=== PATIENT | female | born 1950 | race American Indian/Alaskan Native ===

== ENCOUNTER 2017-03-08 11:16 | Day surgery (SDC) | payer MEDICARE ==
[~2017-03-08 11:16] MED LIST: ANCEF/STERILE WATER 2 GM/20 ML 2 GM/20 ML SYRINGE IV NR; NACL 0.9% 1000 ML 1,000 ML IV SCH
[2017-03-08] MEDS ORDERED: NEO SYNEPHRINE/NS Syringe(OR USE) IV ONE (11:30)
[2017-03-08] MEDS ORDERED: ZOFRAN ONE (11:30)
--- NOTE | 2017-03-08 11:50 | Anesthesia Consultation ---
Anesthesia Consult and Med Hx Date of service: 03/08/17 - Airway Anesthetic Teeth Evaluation: Poor (multiple missing, broken teeth) ROM Head & Neck: Adequate Mental/Hyoid Distance: Adequate Mallampati Class: Class III Intubation Access Assessment: Possibly Difficult - Pre-Operative Health Status ASA Pre-Surgery Classification: ASA3 Proposed Anesthetic Plan: MAC - Pulmonary Hx Smoking: Yes (CIGARETTES 2 PPD X 6 YRS, QUIT IN 1969) Hx Asthma: Yes (flares 2/year) Hx Sleep Apnea: No - Cardiovascular System Hx Hypertension: Yes (FOR 5+ YRS) - Central Nervous System CVA: Yes (11/2016) Hx Psychiatric Problems: No - Endocrine Hx Insulin Dependent Diabetes: Yes - Hematic Hx Sickle Cell Disease: Yes (TRAIT) - Other Systems Hx Cancer: No Hx Obesity: Yes (BMI 55.8)
--- NOTE | 2017-03-08 11:50 | Anesthesia Day of Surgery ---
Anesthesia Day of Surgery - Day of Surgery Patient Examined: Yes Patient H&P Reviewed: Yes Patient is NPO: Yes Beta Blockers: Yes
[2017-03-08] MEDS ORDERED: PEPCID IV NR (12:00)
[2017-03-08] MEDS ORDERED: VERSED IV NR (12:00)
[2017-03-08] MEDS ORDERED: DILAUDID ONE (12:43)
[2017-03-08] MEDS ORDERED: DIPRIVAN 10 MG/ML IV ONE (12:43)
[2017-03-08] MEDS ORDERED: XYLOCAINE MPF 2% ONE (12:43)
[2017-03-08] MEDS ORDERED: MARCAINE 0.5% 0 ML INFILTRATI ONE (12:55)
[2017-03-08] MEDS ORDERED: XYLOCAINE 1%/ EPI 1:100,000 INFILTRATI ONE (12:55)
[2017-03-08] MEDS ORDERED: XYLOCAINE 1% 20 mL ONE (12:56)
[2017-03-08] MEDS ORDERED: SODIUM BICARBONATE ONE (12:56)
[2017-03-08] MEDS ORDERED: ePHEDrine SULFATE ONE (13:16)
[2017-03-08] MEDS ORDERED: XYLOCAINE 1% 20 mL INFILTRATI ONE (13:20)
[2017-03-08] MEDS ORDERED: SODIUM BICARBONATE IV ONE (13:20)
[2017-03-08] MEDS ORDERED: NACL 0.9% IR ONE (14:05)
--- NOTE | 2017-03-08 14:15 | Operative Report ---
Operative Report Operative Report: Date of procedure: 03/08/2017 Pre-operative diagnosis: Headaches/suspicion for temporal arteritis Post-operative diagnosis: Same Procedure name(s): Bilateral temporal artery biopsy Surgeon: Anthony Sloan MD, RPVI Ceramic Plater: None Anesthesia: Local/general Findings: 1. Normal appearing bilateral temporal arteries. 2. No gross evidence of inflammation. Specimens: Bilateral temporal arteries EBL: 10 mL IV fluids: 900 mL Urine output: None Disposition: The recovery Indications: : Headaches, elevated ESR, blurry vision. Procedure in detail: Patient was brought to the operating room table laid on the table in supine position. Bilateral temporal arteries were marked with a Doppler. Patient was turned to the right and the left temporal area was prepped and draped in sterile fashion. The incision was made using #15 blade. Subcutaneous tissue was divided with needle tip Bovie electrocautery. The temporal artery was located and dissected proximally and distally, and tied with 4-0 silk ties both stents. It was mobilized using Bovie electrocautery. It was divided proximally and distally. The wound was injected with quarter percent Marcaine with epinephrine. It was close and 2 layers with 3-0 Vicryl subcutaneous and 4- 0 Monocryl subcuticular closure. Dermabond was applied. Patient's head was then turned to the left. Right temporal area was prepped and draped in usual sterile fashion. The incision was made using #15 blade. Subcutaneous tissue was divided with Bovie electrocautery. Right temporal artery was dissected proximally and distally and tied always 4-0 silk ties. The artery was mobilized using Bovie electrocautery. It was divided proximally and distally. The wound was infiltrated with quarter percent Marcaine with epinephrine. The wound was closed in 2 layers using 3-0 Vicryl 4-0 Monocryl closures. Patient tolerated procedure well. At the end of the case all instrument sponge and needle counts were correct.
--- NOTE | 2017-03-08 14:17 | Short Stay Summary ---
Short Stay Documentation - History H&P: obtained from office - Allergies and Medications Current Medications: Allergies duloxetine HCl [From Cymbalta] Allergy (Verified 03/07/17 14:13) LOWERS B/P pregabalin [From Lyrica] Allergy (Verified 03/07/17 14:13) LOWERS B/P quinapril HCl [From Accupril] Allergy (Verified 03/07/17 14:13) LOWERS B/P Home Medications Medication Instructions Recorded Confirmed Last Taken Type ALBUTEROL Inhaler [Proair] 2 puff IH QID PRN 03/07/17 03/08/17 03/07/17 History Aspirin [Adult Low Dose Aspirin EC] 81 mg PO QDAY 03/07/17 03/08/17 03/03/17 History Carvedilol [Coreg] 12.5 mg PO BID 03/07/17 03/08/17 03/08/17 History Cholecalciferol Vit D3 [Vitamin D3] 1,000 unit PO QDAY 03/07/17 03/08/17 History Cyanocobalamin (Vitamin B-12) 1,000 mcg PO QDAY 03/07/17 03/08/17 03/07/17 History [B-12] Gabapentin [Neurontin] 300 mg PO Q8HR 03/07/17 03/08/17 03/07/17 History Insulin Glargine [Lantus] 30 units SQ QAM 03/07/17 03/08/17 03/07/17 History Insulin Glargine [Lantus] 40 units SQ QHS 03/07/17 03/08/17 03/07/17 History Losartan [Cozaar] 100 mg PO QDAY 03/07/17 03/08/17 03/08/17 History Nystatin Cream [Mycostatin Cream] 1 applic TP BID 03/07/17 03/08/17 03/07/17 History Pantoprazole [Protonix] 40 mg PO QDAY 03/07/17 03/08/17 03/07/17 History Pravastatin Sodium [Pravastatin] 20 mg PO QDAY 03/07/17 03/08/17 03/07/17 History Prednisone [predniSONE] 7 mg PO QDAY 03/07/17 03/08/17 03/07/17 History Sulfamethoxazole/Trimethoprim 1 each PO BID 03/07/17 03/08/17 03/07/17 History [Bactrim DS TAB] metFORMIN [Glucophage] 500 mg PO BID 03/07/17 03/08/17 03/07/17 History Active Medications Famotidine (Pepcid) 20 mg IV PREOP NR Stop: 03/08/17 23:59 Last Admin: 03/08/17 12:18 Dose: 20 mg Cefazolin Sodium (Ancef/Sterile Water 2 Gm/20 Ml) 2 gm in 20 mls @ 80 mls/hr IV PREOP NR PRN Reason: Protocol Stop: 03/08/17 23:59 Sodium Chloride (Nacl 0.9% 1000 Ml) 1,000 mls @ 42 mls/hr IV DIRECT MIKE Last Admin: 03/08/17 12:19 Dose: 42 mls/hr Methylprednisolone Sodium Succinate (Solu-Medrol) 125 mg IV PREOP NR Stop: 03/08/17 23:59 Last Admin: 03/08/17 12:25 Dose: 125 mg Midazolam HCl (Versed) 2 mg IV PREOP NR Stop: 03/08/17 23:59 Last Admin: 03/08/17 12:30 Dose: 2 mg - Brief post op/procedure progress note Procedure: Pre-operative diagnosis: Headaches/suspicion for temporal arteritis Post-operative diagnosis: Same Procedure name(s): Bilateral temporal artery biopsy Surgeon: Anthony Sloan MD, RPVI Combatant Diver Qualified: None Anesthesia: Local/general Findings: 1. Normal appearing bilateral temporal arteries. 2. No gross evidence of inflammation. Specimens: Bilateral temporal arteries EBL: 10 mL IV fluids: 900 mL Urine output: None Disposition: The recovery - Disposition Condition at discharge: Good Disposition: DISCHARGED TO HOME OR SELFCARE Short Stay Discharge Plan Activity: advance as tolerated Weight Bearing Status: Full Weight Bearing Diet: low fat Wound: open to air Additional Instructions: Follow-up with Dr. Sloan in 2 weeks. Follow up with: PRIMARY CAREMD [Primary Care Provider] - 7 Days
[2017-03-08] MEDS ORDERED: NACL 0.9% 1000 ML 1,000 ML ONE (14:25)
--- NOTE | 2017-03-08 15:16 | Post Anesthesia Evaluation ---
- Post Anesthesia Evaluation Patient Participated: Yes Airway Patent: Yes Stable Respiratory Function: Yes Nausea/Vomiting: No Temp > 96.8F: Yes Adequeate Hydration: Yes Anesthesia Complications: No Block Receding Appropriately: Not Applicable Patient on Ventilator: No
[2017-03-08 15:48] VITALS: BP 131/51
== END 2017-03-08 11:17 | disposition home or self-care (01) ==
LOC: OR 11:16
PROVIDERS: ATTEND Surgery Vascular Surgery
DX: R51 Headache (principal); J45.909 Unspecified asthma, uncomplicated; I10 Essential (primary) hypertension; D57.3 Sickle-cell trait; E11.9 Type 2 diabetes mellitus without complications; E66.9 Obesity, unspecified; Z68.43 Body mass index [BMI] 50.0-59.9, adult; Z79.84 Long term (current) use of oral hypoglycemic drugs; Z79.899 Other long term (current) drug therapy; Z87.891 Personal history of nicotine dependence; Z86.73 Personal history of transient ischemic attack (TIA), and cerebral infarction without residual deficits; Z88.8 Allergy status to other drugs, medicaments and biological substances; Z83.3 Family history of diabetes mellitus; Z82.49 Family history of ischemic heart disease and other diseases of the circulatory system
CPT/HCPCS: 37609; 82962; 88305; 88313; J0690; J1170; J2250; J2704; J2930; J7030; J2370; J2405

== ENCOUNTER 2020-12-14 22:10 | Inpatient (IN) | payer MEDICARE ==
[2020-12-14] MEDS ORDERED: SODIUM CHLORIDE 0.9% 1000 ML 1,000 ML IV ONE (22:21)
--- NOTE | 2020-12-14 22:27 | Emergency Department Report ---
ED General Adult HPI - General Chief complaint: Weakness Stated complaint: WEAKNESS Time Seen by Provider: 12/14/20 22:16 Source: patient, EMS Mode of arrival: Stretcher Limitations: Other - History of Present Illness Initial comments: Patient is 70 years old female, hospice, DNR. Patient has history of COPD, CVA, hypertension and diabetes. Patient brought to the emergency room via EMS from home. EMS stated that family reported that patient fell 3 days ago and since then she has not been doing well. Family reported that patient usually walk by herself and do her basic stuff by herself. Patient reported that she has not been eating or drinking well. Patient and family denied any recent history of fever or chills. EMS stated that patient was seen by her hospice nurse and she was given morphine just prior to EMS arrival. Upon arrival to the ER patient is alert, oriented x3. Vital signs stable. Patient denying any symptoms at this moment. -: days(s) - Related Data Home Medications Medication Instructions Recorded Confirmed Last Taken Albuterol Mdi (or & Nicu Only) 2 puff IH QID PRN 03/07/17 03/08/17 03/07/17 [Proair] Aspirin [Adult Low Dose Aspirin EC] 81 mg PO QDAY 03/07/17 03/08/17 03/03/17 Cholecalciferol Vit D3 [Vitamin D3] 1,000 unit PO QDAY 03/07/17 03/08/17 03/07/17 Cyanocobalamin (Vitamin B-12) 1,000 mcg PO QDAY 03/07/17 03/08/17 03/07/17 [B-12] Gabapentin [Neurontin] 300 mg PO Q8HR 03/07/17 03/08/17 03/07/17 Insulin Glargine [Lantus] 30 units SQ QAM 03/07/17 03/08/17 03/07/17 Insulin Glargine [Lantus] 40 units SQ QHS 03/07/17 03/08/17 03/07/17 Losartan [Cozaar] 100 mg PO QDAY 03/07/17 03/08/17 03/08/17 Nystatin Cream [Mycostatin Cream] 1 applic TP BID 03/07/17 03/08/17 03/07/17 Pantoprazole [Protonix] 40 mg PO QDAY 03/07/17 03/08/17 03/07/17 Pravastatin Sodium [Pravastatin] 20 mg PO QDAY 03/07/17 03/08/17 03/07/17 Sulfamethoxazole/Trimethoprim 1 each PO BID 03/07/17 03/08/17 03/07/17 [Bactrim DS TAB] carvediloL [Coreg] 12.5 mg PO BID 03/07/17 03/08/17 03/08/17 metFORMIN [Glucophage] 500 mg PO BID 03/07/17 03/08/17 03/07/17 predniSONE 7 mg PO QDAY 03/07/17 03/08/17 03/07/17 Previous Rx's Medication Instructions Recorded Last Taken Type oxyCODONE /ACETAMINOPHEN [Percocet 1 tab PO Q4HR #40 tab 03/08/17 Unknown Rx ] Allergies Allergy/AdvReac Type Severity Reaction Status Date / Time duloxetine HCl Allergy LOWERS B/P Verified 03/07/17 14:13 [From Cymbalta] pregabalin [From Lyrica] Allergy LOWERS B/P Verified 03/07/17 14:13 quinapril HCl [From Accupril] Allergy LOWERS B/P Verified 03/07/17 14:13 ED Review of Systems ROS: Stated complaint: WEAKNESS Other details as noted in HPI Comment: All other systems reviewed and negative Constitutional: denies: chills, fever Respiratory: denies: cough, shortness of breath, SOB with exertion, SOB at rest Cardiovascular: denies: chest pain, palpitations Gastrointestinal: nausea. denies: abdominal pain, vomiting, diarrhea Neurological: weakness. denies: headache, numbness, paresthesias, confusion ED Past Medical Hx - Past Medical History Hx Hypertension: Yes (FOR 5+ YRS) Hx Diabetes: Yes (FOR 22 YRS) Hx GERD: Yes Hx Sickle Cell Disease: Yes (TRAIT) Hx Arthritis: Yes (AMBULATES WITH A CANE) Hx Headaches / Migraines: Yes Hx Asthma: Yes (flares 2/year) Hx HIV: No - Surgical History Hx Cholecystectomy: Yes Hx Breast Surgery: Yes (EXCISION LEFT BREAST CYST) - Social History Smoking Status: Former Smoker - Medications Home Medications: Home Medications Medication Instructions Recorded Confirmed Last Taken Type Albuterol Mdi (or & Nicu Only) 2 puff IH QID PRN 0503/08/17 03/07/17 History [Proair] Aspirin [Adult Low Dose Aspirin EC] 81 mg PO QDAY 03/07/17 03/08/17 03/03/17 History Cholecalciferol Vit D3 [Vitamin D3] 1,000 unit PO QDAY 03/07/17 03/08/17 03/07/17 History Cyanocobalamin (Vitamin B-12) 1,000 mcg PO QDAY 03/07/17 03/08/17 03/07/17 History [B-12] Gabapentin [Neurontin] 300 mg PO Q8HR 03/07/17 03/08/17 03/07/17 History Insulin Glargine [Lantus] 30 units SQ QAM 03/07/17 03/08/17 03/07/17 History Insulin Glargine [Lantus] 40 units SQ QHS 03/07/17 03/08/17 03/07/17 History Losartan [Cozaar] 100 mg PO QDAY 03/07/17 03/08/17 03/08/17 History Nystatin Cream [Mycostatin Cream] 1 applic TP BID 03/07/17 03/08/17 03/07/17 History Pantoprazole [Protonix] 40 mg PO QDAY 03/07/17 03/08/17 03/07/17 History Pravastatin Sodium [Pravastatin] 20 mg PO QDAY 03/07/17 03/08/17 03/07/17 History Sulfamethoxazole/Trimethoprim 1 each PO BID 03/07/17 03/08/17 03/07/17 History [Bactrim DS TAB] carvediloL [Coreg] 12.5 mg PO BID 03/07/17 03/08/17 03/08/17 History metFORMIN [Glucophage] 500 mg PO BID 03/07/17 03/08/17 03/07/17 History predniSONE 7 mg PO QDAY 03/07/17 03/08/17 03/07/17 History oxyCODONE /ACETAMINOPHEN [Percocet 1 tab PO Q4HR #40 tab 03/08/17 Unknown Rx 5/325] ED Physical Exam - General Limitations: Other General appearance: alert, in no apparent distress - Head Head exam: Present: atraumatic, normocephalic, normal inspection - Eye Eye exam: Present: normal appearance - ENT ENT exam: Present: mucous membranes dry - Neck Neck exam: Present: normal inspection, full ROM. Absent: tenderness, meningismus - Respiratory Respiratory exam: Present: normal lung sounds bilaterally - Cardiovascular Cardiovascular Exam: Present: regular rate, normal rhythm, normal heart sounds - GI/Abdominal GI/Abdominal exam: Present: soft, normal bowel sounds. Absent: distended, tenderness, guarding, rebound, rigid, organomegaly, mass, bruit, pulsatile mass, hernia - Back Exam Back exam: Present: normal inspection. Absent: CVA tenderness (R), CVA tenderness (L) - Neurological Exam Neurological exam: Present: alert, oriented X3 - Psychiatric Psychiatric exam: Present: depressed - Skin Skin exam: Present: warm, dry ED Course Vital Signs 12/14/20 22:23 Temperature 97.9 F Pulse Rate 86 Respiratory 14 Rate Blood Pressure 130/50 [Left] O2 Sat by Pulse 98 Oximetry ED Medical Decision Making - Lab Data Result diagrams: 12/14/20 23:01 12/14/20 23:01 - EKG Data -: EKG Interpreted by Nv EKG shows normal: sinus rhythm Rate: normal - EKG Data Interpretation: no acute changes - Radiology Data Radiology results: report reviewed - Medical Decision Making Patient is 70 years old female, hospice, DNR. Patient has history of COPD, CVA, hypertension and diabetes. Patient brought to the emergency room via EMS from home. EMS stated that family reported that patient fell 3 days ago and since then she has not been doing well. Family reported that patient usually walk by herself and do her basic stuff by herself. Patient reported that she has not been eating or drinking well. Patient and family denied any recent history of fever or chills. EMS stated that patient was seen by her hospice nurse and she was given morphine just prior to EMS arrival. Upon arrival to the ER patient is alert, oriented x3. Vital signs stable. Patient denying any symptoms at this moment. Patient remained stable in the ER. Patient received normal saline and Zofran. CT brain is negative for acute finding. EKG showed no evidence of ST elevation. Labs reviewed and showed significantly elevated creatinine of 6.9. No previous records to compare. This is could be due to dehydration causing acute on chronic renal failure. Chest x-ray is unremarkable. I discussed the patient with Dr. Gallegos, he agreed to admit the patient to medical service for further management. Critical care attestation.: If time is entered above; I have spent that time in minutes in the direct care of this critically ill patient, excluding procedure time. ED Disposition Clinical Impression: Acute renal failure, Dehydration, Failure to thrive, Fall Disposition: 09 OP ADMIT IP TO THIS HOSP Is pt being admited?: Yes Condition: Stable
--- NOTE | 2020-12-14 22:58 | Cat Scan Report ---
CT head/brain wo con INDICATION: Altered Mental Status. TECHNIQUE: Routine CT head without contrast. All CT scans at this location are performed using CT dos e reduction for ALARA by means of automated exposure control. COMPARISON: None. FINDINGS: BRAIN / INTRACRANIAL CONTENTS: No acute hemorrhage, mass effect, midline shift, or hydrocephalus. No appreciable acute large territorial or lacunar infarct. No chronic infarct or focal atrophy. Normal b rain volume and ventricular/sulcal size for age. ORBITS: No significant abnormality of visualized orbits. SINUSES / MASTOIDS: There is moderate mucosal thickening in the left sphenoid sinus. ADDITIONAL FINDINGS: None. IMPRESSION: 1. No acute intracranial abnormality. Signer Name: Cj Jj MD Signed: 12/14/2020 10:54 PM Workstation Name: [id number]
--- NOTE | 2020-12-14 23:21 | XRay Report ---
CHEST 1 VIEW 12/14/2020 10:11 PM INDICATION / CLINICAL INFORMATION: Altered Mental Status. COMPARISON: None available. FINDINGS: SUPPORT DEVICES: None. HEART / MEDIASTINUM: No significant abnormality. LUNGS / PLEURA: Lungs are underexpanded without appreciable focal abnormality. No pneumothorax. ADDITIONAL FINDINGS: No significant additional findings. IMPRESSION: 1. Underexpanded exam without appreciable focal abnormality. Signer Name: Cj Jj MD Signed: 12/14/2020 11:16 PM Workstation Name: [id number]
--- NOTE | 2020-12-14 23:22 | XRay Report ---
2 VIEWS BILATERAL HIPS WITH PELVIS INDICATION / CLINICAL INFORMATION: Fall, pelvic pain. COMPARISON: None available. FINDINGS: BONES/JOINT(S): No acute fracture or subluxation. No significant degenerative changes. SOFT TISSUES: No significant abnormality. ADDITIONAL FINDINGS: None. Signer Name: Cj Jj MD Signed: 12/14/2020 11:17 PM Workstation Name: [id number]
[2020-12-14 23:51] LABS: Hemoglobin 9.4 gm/dl (10.1-14.3); Mean Corpuscular HGB Conc 33 % (30-34); Mean Corpuscular Volume 91 fl (79-97); Platelet Count 235 K/mm3 (140-440); Red Blood Count 3.07 M/mm3 (3.65-5.03)
[2020-12-14 23:58] LABS: Basophils % (Auto) 0.3 % (0.0-1.8); Eosinophils # (Auto) 0.1 K/mm3 (0.0-0.4); Eosinophils % (Auto) 1.4 % (0.0-4.3); INR 1.03 (0.87-1.13); Lymphocytes # (Auto) 1.5 K/mm3 (1.2-5.4); Lymphocytes % (Auto) 14.6 % (13.4-35.0); Monocytes # (Auto) 1.4 K/mm3 (0.0-0.8); Monocytes % (Auto) 13.5 % (0.0-7.3)
[2020-12-15 00:03] LABS: Albumin 3.3 g/dL (3.9-5); Bilirubin,Direct 0.3 mg/dL (0-0.2)
[2020-12-15 00:05] LABS: Calcium 8.8 mg/dL (8.4-10.2)
[2020-12-15 01:31] LABS: Bilirubin,Urine NEG (Negative); Blood,Urine NEG (Negative); Color,Urine Yellow (Yellow); Protein,Urine <15 mg/dL mg/dL (Negative)
[2020-12-15] MEDS ORDERED: MAGNESIUM HYDROXIDE (MOM) ORAL LIQD UDC PO PRN (02:11)
[2020-12-15] MEDS ORDERED: ACETAMINOPHEN 325 MG TAB PO PRN (02:11)
[2020-12-15] MEDS ORDERED: ONDANSETRON 4 MG/2 ML INJ IV PRN (02:11)
[2020-12-15] MEDS ORDERED: DEXTROSE 50% IN WATER (25GM) 50 ML SYRINGE IV PRN (02:11)
--- NOTE | 2020-12-15 02:24 | History and Physical Report ---
History of Present Illness Date of examination: 12/15/20 Date of admission: 12/15/2020 Chief complaint: Generalized weakness Decreased oral intake History of present illness: 70-year-old -[place] female who is also a DNR with known history of COPD, CVA, hypertension and diabetes mellitus brought to the emergency room via EMS from home because of decreased oral intake and generalized weakness. Patient was said to have had a fall about 3 days ago and since then patient condition has been declining. She has not been able to ambulate very well and has been having decreased oral intake. There has been no fever or chills, no nausea vomiting, no abdominal pain, no diarrhea, no hematuria or dysuria. There has been no history of head injury or seizure disorder. No known history of sick contacts and no recent travel. No contacts with anyone with COVID-19. Patient had some morphine prior to arrival in the emergency room and since arrival has been quite drowsy and unable to have any verbal communication during this exam. Work-up in the emergency room, significant findings is that of elevated BUN and creatinine. Other work-up has been within normal limits. Patient is being admitted for dehydration and generalized weakness. Past History Past Medical History: arthritis, COPD, diabetes, GERD, hypertension, stroke, other (History of sickle cell trait, asthma) Past Surgical History: cholecystectomy, Other (Left breast cyst excision) Social history: smoking (Former smoker) Family history: no significant family history Medications and Allergies Allergies Allergy/AdvReac Type Severity Reaction Status Date / Time duloxetine HCl Allergy LOWERS B/P Verified 03/07/17 14:13 [From Cymbalta] pregabalin [From Lyrica] Allergy LOWERS B/P Verified 03/07/17 14:13 quinapril HCl [From Accupril] Allergy LOWERS B/P Verified 03/07/17 14:13 Home Medications Medication Instructions Recorded Confirmed Last Taken Type Albuterol Mdi (or & Nicu Only) 2 puff IH QID PRN 03/07/17 03/08/17 03/07/17 History [Proair] Aspirin [Adult Low Dose Aspirin EC] 81 mg PO QDAY 03/07/17 03/08/17 03/03/17 History Cholecalciferol Vit D3 [Vitamin D3] 1,000 unit PO QDAY 03/07/17 03/08/17 03/07/17 History Cyanocobalamin (Vitamin B-12) 1,000 mcg PO QDAY 03/07/17 03/08/17 03/07/17 History [B-12] Gabapentin [Neurontin] 300 mg PO Q8HR 03/07/17 03/08/17 03/07/17 History Insulin Glargine [Lantus] 30 units SQ QAM 03/07/17 03/08/17 03/07/17 History Insulin Glargine [Lantus] 40 units SQ QHS 03/07/17 03/08/17 03/07/17 History Losartan [Cozaar] 100 mg PO QDAY 03/07/17 03/08/17 03/08/17 History Nystatin Cream [Mycostatin Cream] 1 applic TP BID 03/07/17 03/08/17 03/07/17 History Pantoprazole [Protonix] 40 mg PO QDAY 03/07/17 03/08/17 03/07/17 History Pravastatin Sodium [Pravastatin] 20 mg PO QDAY 03/07/17 03/08/17 03/07/17 History Sulfamethoxazole/Trimethoprim 1 each PO BID 03/07/17 03/08/17 03/07/17 History [Bactrim DS TAB] carvediloL [Coreg] 12.5 mg PO BID 03/07/17 03/08/17 03/08/17 History metFORMIN [Glucophage] 500 mg PO BID 03/07/17 03/08/17 03/07/17 History predniSONE 7 mg PO QDAY 03/07/17 03/08/17 03/07/17 History oxyCODONE /ACETAMINOPHEN [Percocet 1 tab PO Q4HR #40 tab 03/08/17 Unknown Rx 5/325] Active Meds: Active Medications Sodium Chloride (Nacl 0.9% 1000 Ml) 1,000 mls @ 250 mls/hr IV ONCE ONE Stop: 12/15/20 02:20 Last Admin: 12/15/20 00:35 Dose: 250 mls/hr Documented by: Review of Systems ROS unobtainable: due to mental status Exam - Constitutional Vitals: Temp Pulse Resp BP Pulse Ox 97.9 F 86 14 130/50 98 12/14/20 22:23 12/14/20 22:23 12/14/20 22:23 12/14/20 22:23 12/14/20 22:23 General appearance: Present: no acute distress, well-nourished, obese - EENT Eyes: Present: PERRL, EOM intact ENT: hearing intact, clear oral mucosa, dentition normal - Neck Neck: Present: supple, normal ROM - Respiratory Respiratory effort: normal Respiratory: bilateral: CTA - Cardiovascular Rhythm: regular Heart Sounds: Present: S1 & S2. Absent: systolic murmur, diastolic murmur, rub, click - Extremities Extremities: no ischemia, pulses intact, pulses symmetrical, No edema, Full ROM Peripheral Pulses: within normal limits - Abdominal General gastrointestinal: Present: soft, non-tender, non-distended, normal bowel sounds. Absent: mass - Integumentary Integumentary: Present: clear, warm, dry, decreased turgor. Absent: rash - Musculoskeletal Musculoskeletal: strength equal bilaterally - Psychiatric Psychiatric: cooperative - Neurologic Neurologic: CNII-XII intact, no focal deficits, moves all extremities, other (Alert but nonverbal) HEART Score - HEART Score Troponin: Troponin T 0.112 ng/mL (0.00-0.029) H* 12/14/20 23:01 Results - Labs CBC & Chem 7: 12/14/20 23:01 12/14/20 23:01 Labs: Abnormal lab results 12/14/20 12/14/20 12/14/20 Range/Units 23:01 23:01 23:01 RBC 3.07 L (3.65-5.03) M/mm3 Hgb 9.4 L (10.1-14.3) gm/dl Hct 28.0 L (30.3-42.9) % [place] % (Auto) 13.5 H (0.0-7.3) % [place] # (Auto) 1.4 H (0.0-0.8) K/mm3 Seg Neutrophils % 70.2 H (40.0-70.0) % Sodium 136 L (137-145) mmol/L Chloride 96.4 L (98-107) mmol/L BUN 46 H (7-17) mg/dL Creatinine 6.9 H (0.6-1.2) mg/dL Glucose 119 H (65-100) mg/dL Direct Bilirubin 0.3 H (0-0.2) mg/dL Troponin T 0.112 H* (0.00-0.029) ng/mL Total Protein 5.2 L (6.3-8.2) g/dL Albumin 3.3 L (3.9-5) g/dL Assessment and Plan - Patient Problems (1) Dehydration Current Visit: Yes Status: Acute Plan to address problem: Possibly secondary to decreased oral intake. Will place patient on IV fluid and monitor inputs and output. (2) Diabetes mellitus Current Visit: Yes Status: Acute Plan to address problem: We will monitor Accu-Cheks. (3) Hypertension Current Visit: Yes Status: Acute Plan to address problem: We will resume routine home medications and monitor vital signs closely. (4) DVT prophylaxis Current Visit: Yes Status: Acute Plan to address problem: Patient placed on subcutaneous heparin. (5) DNR (do not resuscitate) Current Visit: Yes Status: Acute Plan to address problem: Patient is a DNR. (6) Acute renal failure Current Visit: Yes Status: Acute Plan to address problem: Prerenal. Patient has had decreased oral intake lately. No baseline BUN and creatinine for comparison. We will continue on IV fluid and monitor BUN and creatinine. Consult placed to nephrology for evaluation. (7) Fall Current Visit: Yes Status: Acute Plan to address problem: We will place on fall precautions. We also place consult to physical therapy for evaluation.
[2020-12-15 02:54] LABS: Chol/HDL Ratio 4.04 %
[2020-12-15] MEDS: HEPARIN 5,000 UNIT/1 ML VIAL SUB-Q SCH ×3 (05:29→22:02)
[2020-12-15] MEDS: INSULIN REGULAR, HUMAN 100 UNITS/1 ML SUB-Q SCH ×4 (07:30→22:02)
--- NOTE | 2020-12-15 09:34 | Consultation ---
History of Present Illness - Reason for Consult Consult date: 12/15/20 acute renal failure - History of Present Illness The patient is a 70 YO AAF with known history of Morbid Obesity, HTN, DM type 2, COPD, CVA, CKD and DNR status who was brought to [facility] ED 12/14 via EMS from home due to decreased oral intake and generalized weakness. Patient was not able to provide any history and there was no family member at the bedside. Unable to reach her daughter. Patient fell about 3 days ago and since then patient condition has been declining. She has not been able to ambulate very well and has been having decreased oral intake. No h/o fever, chills, nausea, vomiting, diarrhea, abdominal pain, hematuria, dysuria, head injury or seizure disorder. No known history of contact with anyone with COVID-19. Work-up in the ED, significant BUN 46 and creatinine 6.9. Nephrology was consulted for further evaluation. Past History Past Medical History: arthritis, COPD, diabetes, GERD, hypertension, renal failure, stroke, other (History of sickle cell trait, asthma) Past Surgical History: cholecystectomy, Other (Left breast cyst excision) Social history: smoking (Former smoker) Family history: no significant family history Medications and Allergies Allergies Allergy/AdvReac Type Severity Reaction Status Date / Time duloxetine HCl Allergy LOWERS B/P Verified 03/07/17 14:13 [From Cymbalta] pregabalin [From Lyrica] Allergy LOWERS B/P Verified 03/07/17 14:13 quinapril HCl [From Accupril] Allergy LOWERS B/P Verified 03/07/17 14:13 Home Medications Medication Instructions Recorded Confirmed Last Taken Type Albuterol Mdi (or & Nicu Only) 2 puff IH QID PRN 03/07/17 03/08/17 03/07/17 History [Proair] Aspirin [Adult Low Dose Aspirin EC] 81 mg PO QDAY 03/07/17 03/08/17 03/03/17 History Cholecalciferol Vit D3 [Vitamin D3] 1,000 unit PO QDAY 03/07/17 03/08/17 03/07/17 History Cyanocobalamin (Vitamin B-12) 1,000 mcg PO QDAY 03/07/17 03/08/17 03/07/17 History [B-12] Gabapentin [Neurontin] 300 mg PO Q8HR 03/07/17 03/08/17 03/07/17 History Insulin Glargine [Lantus] 30 units SQ QAM 03/07/17 03/08/17 03/07/17 History Insulin Glargine [Lantus] 40 units SQ QHS 03/07/17 03/08/17 03/07/17 History Losartan [Cozaar] 100 mg PO QDAY 03/07/17 03/08/17 03/08/17 History Nystatin Cream [Mycostatin Cream] 1 applic TP BID 03/07/17 03/08/17 03/07/17 History Pantoprazole [Protonix] 40 mg PO QDAY 03/07/17 03/08/17 03/07/17 History Pravastatin Sodium [Pravastatin] 20 mg PO QDAY 03/07/17 03/08/17 03/07/17 History Sulfamethoxazole/Trimethoprim 1 each PO BID 03/07/17 03/08/17 03/07/17 History [Bactrim DS TAB] carvediloL [Coreg] 12.5 mg PO BID 03/07/17 03/08/17 03/08/17 History metFORMIN [Glucophage] 500 mg PO BID 03/07/17 03/08/17 03/07/17 History predniSONE 7 mg PO QDAY 03/07/17 03/08/17 03/07/17 History oxyCODONE /ACETAMINOPHEN [Percocet 1 tab PO Q4HR #40 tab 03/08/17 Unknown Rx 5/325] Active Meds: Active Medications Acetaminophen (Acetaminophen 325 Mg Tab) 650 mg PO Q4H PRN PRN Reason: Pain MILD(1-3)/Fever >100.5/OLIVER Dextrose (Dextrose 50% In Water (25gm) 50 Ml Syringe) 50 ml IV Q30MIN PRN; Pr otocol PRN Reason: Hypoglycemia Heparin Sodium (Porcine) (Heparin 5,000 Unit/1 Ml Vial) 5,000 unit SUB-Q Q8HR MIKE Last Admin: 12/15/20 05:29 Dose: 5,000 unit Documented by: Sodium Chloride (Nacl 0.9% 1000 Ml) 1,000 mls @ 125 mls/hr IV DIRECT MIKE Insulin Human Regular (Insulin Regular, Human 100 Units/1 Ml) 0 units SUB-Q ACHS MIKE; Protocol Last Admin: 12/15/20 07:30 Dose: Not Given Documented by: Magnesium Hydroxide (Magnesium Hydroxide (Mom) Oral Liqd Udc) 30 ml PO Q4H PRN PRN Reason: Constipation Ondansetron HCl (Ondansetron 4 Mg/2 Ml Inj) 4 mg IV Q8H PRN PRN Reason: Nausea And Vomiting Sodium Chloride (Sodium Chloride 0.9% 10 Ml Flush Syringe) 10 ml IV BID [facility] Last Admin: 12/15/20 09:34 Dose: 10 ml Documented by: Sodium Chloride (Sodium Chloride 0.9% 10 Ml Flush Syringe) 10 ml IV PRN PRN PRN Reason: LINE FLUSH Review of Systems ROS unobtainable: due to mental status Exam - Vital Signs Vital signs: Vital Signs Resp 14 12/14/20 22:16 Results - Lab Results 12/14/20 23:01 12/15/20 13:32 Most recent lab results Calcium 8.8 mg/dL (8.4-10.2) 12/14/20 23:01 Assessment and Plan 1. Acute kidney injury: Vasomotor HILDA superimposed on CKD in the setting of volume depletion and hypotension. Most likely ATN. Urine studies and Renal US ordered. Continue IV fluids. Monitor renal function. Renal prognosis is guarded. Avoid nephrotoxic agents. Meds dosage based on GFR. Monitor for [employer] needs. 2. FEN: Continue IV fluids. Monitor volume status and lytes. 3. Elevated Troponin: Seen by Cards. 4. Toxic metabolic encephalopathy: Baseline MS is unknown. Monitor. 6. Anemia, POA: Transfuse prn. Monitor. 7. Hypertension: BP is low. Monitor. Unable to reach her daughter when I called. Please see the note from SW and Hospitalist. Subjective: Patient was seen and examined at the bedside. RN at the bedside. Examination: General appearance: well-developed, appears stated age, not in distress HEENT: ATNC Neck: Trachea midline Respiratory: ctab Cardiology: regular, S1S2, no murmur Abdomen: soft, normoactive bowel sounds, not tender, not distended Integumentary: warm and dry, no obvious rash Neurologic: lethargic, non-verbal, not following any command Ext: no edema : Gordon catheter
--- NOTE | 2020-12-15 10:04 | Consultation ---
<CHUY HENLEY - Last Filed: 12/15/20 09:59> History of Present Illness Consult date: 12/15/20 Consult reason: elevated troponin History of present illness: 70-year old F on home hospice for end-stage COPD. She was brought in generalized weakness and failure to thrive. Laboratory studies done on presentation shows dehydration, acute kidney injury with a creatinine of 6.9. There was also elevated troponin at 0.112. Patient denies chest pain. It is unclear if she has had any prior cardiac workup. An ECG done is sinus rhythm with a right bundle branch block. No acute ST or T wave changes. There is no prior ECG is available for comparison. A cardiac consultation has been requested for elevated troponin measurement. Past History Past Medical History: arthritis, COPD, diabetes, GERD, hypertension, stroke, other (History of sickle cell trait, asthma) Past Surgical History: cholecystectomy, Other (Left breast cyst excision) Social history: smoking (Former smoker) Family history: no significant family history Medications and Allergies Allergies Allergy/AdvReac Type Severity Reaction Status Date / Time duloxetine HCl Allergy LOWERS B/P Verified 03/07/17 14:13 [From Cymbalta] pregabalin [From Lyrica] Allergy LOWERS B/P Verified 03/07/17 14:13 quinapril HCl [From Accupril] Allergy LOWERS B/P Verified 03/07/17 14:13 Home Medications Medication Instructions Recorded Confirmed Last Taken Type Albuterol Mdi (or & Nicu Only) 2 puff IH QID PRN 03/07/17 03/08/17 03/07/17 History [ProAir HFA Inhaler] Aspirin [Adult Low Dose Aspirin EC] 81 mg PO QDAY 03/07/17 03/08/17 03/03/17 History Cholecalciferol Vit D3 [Vitamin D3 1,000 unit PO QDAY 03/07/17 03/08/17 03/07/17 History 1,000 UNIT TAB] Cyanocobalamin (Vitamin B-12) 1,000 mcg PO QDAY 03/07/17 03/08/17 03/07/17 History [B-12] Gabapentin 300 mg PO Q8HR 03/07/17 03/08/17 03/07/17 History Losartan [Cozaar] 100 mg PO QDAY 03/07/17 03/08/17 03/08/17 History Nystatin Cream [Mycostatin Cream] 1 applic TP BID 03/07/17 03/08/17 03/07/17 History Pantoprazole [Protonix TAB] 40 mg PO QDAY 03/07/17 03/08/17 03/07/17 History Pravastatin Sodium [Pravastatin] 20 mg PO QDAY 03/07/17 03/08/17 03/07/17 History Sulfamethoxazole/Trimethoprim 1 each PO BID 03/07/17 03/08/17 03/07/17 History [Bactrim DS TAB] carvediloL [Coreg] 12.5 mg PO BID 03/07/17 03/08/17 03/08/17 History oxyCODONE /ACETAMINOPHEN [Percocet 1 tab PO Q4HR #40 tab 03/08/17 Unknown Rx 5/325 mg] Active Meds: Active Medications Acetaminophen (Acetaminophen 325 Mg Tab) 650 mg PO Q4H PRN PRN Reason: Pain MILD(1-3)/Fever >100.5/OLIVER Dextrose (Dextrose 50% In Water (25gm) 50 Ml Syringe) 50 ml IV Q30MIN PRN; Protocol PRN Reason: Hypoglycemia Heparin Sodium (Porcine) (Heparin 5,000 Unit/1 Ml Vial) 5,000 unit SUB-Q Q8HR [facility] Last Admin: 12/15/20 05:29 Dose: 5,000 unit Documented by: Sodium Chloride (Nacl 0.9% 1000 Ml) 1,000 mls @ 125 mls/hr IV DIRECT MIKE Insulin Human Regular (Insulin Regular, Human 100 Units/1 Ml) 0 units SUB-Q ACHS [facility]; Protocol Last Admin: 12/15/20 07:30 Dose: Not Given Documented by: Magnesium Hydroxide (Magnesium Hydroxide (Mom) Oral Liqd Udc) 30 ml PO Q4H PRN PRN Reason: Constipation Ondansetron HCl (Ondansetron 4 Mg/2 Ml Inj) 4 mg IV Q8H PRN PRN Reason: Nausea And Vomiting Sodium Chloride (Sodium Chloride 0.9% 10 Ml Flush Syringe) 10 ml IV BID [facility] Last Admin: 12/15/20 09:34 Dose: 10 ml Documented by: Sodium Chloride (Sodium Chloride 0.9% 10 Ml Flush Syringe) 10 ml IV PRN PRN PRN Reason: LINE FLUSH Review of Systems ROS unobtainable: due to mental status Cardiovascular: no chest pain Physical Examination Vital Signs Resp 14 12/14/20 22:16 General appearance: no acute distress, obese Cardiac: Positive: Reg Rate and Rhythm Lungs: Positive: Decreased Breath Sounds Results 12/14/20 23:01 12/14/20 23:01 Cardiac Enzymes 12/14/20 Range/Units 23:01 AST 19 (5-40) units/L Coagulation 12/14/20 Range/Units 23:01 PT 13.4 (12.2-14.9) Sec. INR 1.03 (0.87-1.13) APTT 30.0 (24.2-36.6) Sec. Lipids 12/14/20 Range/Units 23:01 Triglycerides 153 H (2-149) mg/dL Cholesterol 198 (50-199) mg/dL HDL Cholesterol 49 (40-59) mg/dL Cholesterol/HDL Ratio 4.04 % CBC 12/14/20 Range/Units 23:01 WBC 10.3 (4.5-11.0) K/mm3 RBC 3.07 L (3.65-5.03) M/mm3 Hgb 9.4 L (10.1-14.3) gm/dl Hct 28.0 L (30.3-42.9) % Plt Count 235 (140-440) K/mm3 Lymph # (Auto) 1.5 (1.2-5.4) K/mm3 [place] # (Auto) 1.4 H (0.0-0.8) K/mm3 Eos # (Auto) 0.1 (0.0-0.4) K/mm3 Baso # (Auto) 0.0 (0.0-0.1) K/mm3 Comprehensive Metabolic Panel 12/14/20 12/14/20 Range/Units 23:01 23:01 Sodium 136 L (137-145) mmol/L Potassium 4.6 (3.6-5.0) mmol/L Chloride 96.4 L (98-107) mmol/L Carbon Dioxide 27 (22-30) mmol/L BUN 46 H (7-17) mg/dL Creatinine 6.9 H (0.6-1.2) mg/dL Glucose 119 H (65-100) mg/dL Calcium 8.8 (8.4-10.2) mg/dL Direct Bilirubin 0.3 H (0-0.2) mg/dL Indirect Bilirubin 0.8 mg/dL AST 19 (5-40) units/L ALT 8 (7-56) units/L Alkaline Phosphatase 121 (35-129) units/L Total Protein 5.2 L (6.3-8.2) g/dL Albumin 3.3 L (3.9-5) g/dL Assessment and Plan Elevated troponin pt denies chest pain ECG is SR with RBBB. No acute ischemic changes Dehydration Acute renal failure COPD on home hospice Hypertension Will pursue a conservative cardiac management. <HANSEL STERN Last Filed: 12/19/20 07:09> History of Present Illness History of present illness: I SAW THIS PT & AGREE WITH THE Dx & Tx Medications and Allergies Active Meds: Active Medications Acetaminophen (Acetaminophen 325 Mg Tab) 650 mg PO Q4H PRN PRN Reason: Pain MILD(1-3)/Fever >100.5/OLIVER Aspirin (Aspirin 300 Mg Rect Supp) 300 mg NC QDAY [facility] Last Admin: 12/18/20 09:03 Dose: Not Given Documented by: Atorvastatin Calcium (Atorvastatin 40 Mg Tab) 40 mg PO QHS MIKE Last Admin: 12/18/20 22:11 Dose: Not Given Documented by: Dextrose (Dextrose 50% In Water (25gm) 50 Ml Syringe) 50 ml IV Q30MIN PRN; Protocol PRN Reason: Hypoglycemia Heparin Sodium (Porcine) (Heparin 5,000 Unit/1 Ml Vial) 5,000 unit SUB-Q Q8HR MIKE Last Admin: 12/19/20 05:00 Dose: 5,000 unit Documented by: Hydrophilic Ointment (Lip Therapy Vaseline) 1 applic TP DIRECT PRN PRN Reason: Dry Lips Last Admin: 12/18/20 17:03 Dose: 1 applic Documented by: Cefepime HCl (Cefepime/Ns 1 Gm/100 Ml) 1 gm in 100 mls @ 200 mls/hr IV Q24HR MIKE; Protocol Last Admin: 12/18/20 09:02 Dose: 200 mls/hr Documented by: Insulin Human Regular (Insulin Regular, Human 100 Units/1 Ml) 0 units SUB-Q ACHS MIKE; Protocol Last Admin: 12/18/20 22:10 Dose: Not Given Documented by: Magnesium Hydroxide (Magnesium Hydroxide (Mom) Oral Liqd Udc) 30 ml PO Q4H PRN PRN Reason: Constipation Morphine Sulfate (Morphine 2 Mg/1 Ml Inj) 2 mg IV Q4H PRN PRN Reason: Pain, Moderate (4-6) Ondansetron HCl (Ondansetron 4 Mg/2 Ml Inj) 4 mg IV Q8H PRN PRN Reason: Nausea And Vomiting Sodium Chloride (Sodium Chloride 0.9% 10 Ml Flush Syringe) 10 ml IV BID MIKE Last Admin: 12/18/20 22:31 Dose: 10 ml Documented by: Sodium Chloride (Sodium Chloride 0.9% 10 Ml Flush Syringe) 10 ml IV PRN PRN PRN Reason: LINE FLUSH Physical Examination Vital Signs Resp 14 12/14/20 22:16 Results 12/18/20 05:40 12/18/20 05:40
[2020-12-15] MEDS: SODIUM CHLORIDE 0.9% 1000 ML 1,000 ML IV SCH ×2 (10:41→19:06)
--- NOTE | 2020-12-15 11:05 | Event Note ---
Date: 12/15/20 Spoke to the patients daughter, [phone], she informs me that she is aware her mom is terminal and will need to go into halfway with hospice and has declined since Saturdays when she fell. The hospice company is [facility] and they are also working on halfway placement. I have evaluated the patient who remains with some altered sensorium and advised the daughter, No infection. We discussed the increased Troponin in a setting of Heart failure per the daughter and HILDA along with recent fall. Imaging studies have been reviewed Daughter wants to continue DNR and no heroic measures in honor of her mothers wish Will institute fall precautions. Pre-halfway check of COVID 19 Anticipate discharge in am.
[2020-12-15 14:16] LABS: Calcium 8.8 mg/dL (8.4-10.2)
[2020-12-15] MEDS ORDERED: SODIUM POLYSTYRENE 15 GM/60 ML ORAL LIQD PO ONE (18:00)
[2020-12-16] MEDS ORDERED: ZIPRASIDONE MESYLATE 20 MG VIAL IM ONE (00:15)
[2020-12-16] MEDS ORDERED: WATER FOR INJ Sterile (PF) 10 ML ONE (00:39)
[2020-12-16] MEDS: SODIUM CHLORIDE 0.9% 1000 ML 1,000 ML IV SCH ×2 (04:55→09:55)
[2020-12-16] MEDS: HEPARIN 5,000 UNIT/1 ML VIAL SUB-Q SCH ×3 (05:00→21:57)
[2020-12-16 05:26] LABS: Hematocrit 31.9 % (30.3-42.9); Hemoglobin 10.5 gm/dl (10.1-14.3); Mean Corpuscular HGB Conc 33 % (30-34); Mean Corpuscular Volume 92 fl (79-97); Platelet Count 247 K/mm3 (140-440); Red Blood Count 3.47 M/mm3 (3.65-5.03); Red Cell Distribution Width 14.9 % (13.2-15.2)
[2020-12-16 05:30] LABS: Calcium 8.3 mg/dL (8.4-10.2)
[2020-12-16 05:31] LABS: INR 1.75 (0.87-1.13)
[2020-12-16 06:31] LABS: Band Neutrophils # (Manual) 0.5 K/mm3; Total Cells Counted 100
[2020-12-16 06:32] LABS: Anisocytosis 1+; Platelet Estimate Consistent w Auto; Toxic Granulation 1+; Toxic Vacuolation Few
[2020-12-16] MEDS: INSULIN REGULAR, HUMAN 100 UNITS/1 ML SUB-Q SCH ×4 (08:38→22:05)
--- NOTE | 2020-12-16 09:09 | Progress Note ---
Assessment and Plan Assessment and plan: 70-year-old -[place] female who is also a DNR with known history of COPD, CVA, hypertension and diabetes mellitus brought to the emergency room via EMS from home because of decreased oral intake and generalized weakness. Patient was said to have had a fall about 3 days ago and since then patient condition has been declining. She has not been able to ambulate very well and has been having decreased oral intake. There has been no fever or chills, no nausea vomiting, no abdominal pain, no diarrhea, no hematuria or dysuria. There has been no history of head injury or seizure disorder. No known history of sick contacts and no recent travel. No contacts with anyone with COVID-19. Patient had some morphine prior to arrival in the emergency room and since arrival has been quite drowsy and unable to have any verbal communication during this exam. Work-up in the emergency room, significant findings is that of elevated BUN and creatinine. Other work-up has been within normal limits. Patient is being admitted for dehydration and generalized weakness. Acute metabolic encephalopathy etiology still questionable Leukocytosis unknown source Acute kidney injury likely secondary to ATN Dehydration Diabetes mellitus Hypokalemia Type II [place] Morbidly obese BMI 45 COPD without acute exacerbation Prior history of CVA Hypertension Recurrent falls Plan 12/16: Patient of admission was ruled out for stroke with a CT which was negative considering that this has been 3 days of worsening mental status was anticipated that if there is a stroke it would show on the CT regardless the patient also had type II KS for which cardiology was consulted and recommended conservative management which will continue in respect to cardiology. Also discussed with the daughter who does not want any heroic measures and would like the patient placed to a senior living with hospice. Patient continues to have decreased oral intake family did not want any life prolonging measures including tube feeds. Today patient is noted to have leukocytosis unknown etiology we will repeat study. We will also obtain an MRI asked family interested to know if there was a definite new stroke. While this is going on we will continue work-up we will start the patient on aspirin and statin. DVT and GI prophylaxis Start the patient on empiric antibiotics. Ideally if further studies were approved by family would have pursued a lumbar puncture but the futility of this study at this time is questionable. Patient has no fever except the noted altered mental status. Will give Kayexalate will probably put an NG tube for temporary corrective measures of electrolytes and not for life prolonging measures We will obtain speech evaluation Keep patient head of bed up to prevent aspiration. History Interval history: Patient seen and examined a little more confused this morning. The patient had Geodon given last night was put on restraints. Discussed with nursing staff to reevaluate. Hospitalist Physical - Physical exam Narrative exam: VITAL SIGNS: Reviewed. GENERAL: The patient appears normally developed, morbidly obese, otherwise confused vital signs as documented. HEAD: No signs of head trauma. EYES: Pupils are equal. Extraocular motions intact. EARS: Hearing grossly intact. MOUTH: Oropharynx is normal. NECK: No adenopathy, no JVD. CHEST: Chest with clear breath sounds bilaterally. No wheezes, rales, or rhonchi. CARDIAC: Regular rate and rhythm. S1 and S2, without murmurs, gallops, or rubs. VASCULAR: No Edema. Peripheral pulses normal and equal in all extremities. ABDOMEN: Soft, non tender and non distended. No rebound or guarding, and no masses palpated. Bowel Sounds normal. MUSCULOSKELETAL: Good range of motion of all major joints. Extremities without clubbing, cyanosis or edema. NEUROLOGIC EXAM: Awake with no focal sensory or strength deficits. PSYCHIATRIC: Mood normal. SKIN: detail exam as documented in skin assessment - Constitutional Vitals: Temp Pulse Resp BP Pulse Ox 99.3 F 118 H 16 108/47 92 12/16/20 04:49 12/16/20 04:49 12/16/20 04:49 12/16/20 04:49 12/16/20 04:49 General appearance: Present: no acute distress, obese HEART Score - HEART Score Troponin: Troponin T 0.112 ng/mL (0.00-0.029) H* 12/14/20 23:01 Results - Labs CBC & Chem 7: 12/16/20 04:15 12/16/20 04:15 Labs: Laboratory Last Values WBC 27.3 K/mm3 (4.5-11.0) H 12/16/20 04:15 RBC 3.47 M/mm3 (3.65-5.03) L 12/16/20 04:15 Hgb 10.5 gm/dl (10.1-14.3) 12/16/20 04:15 Hct 31.9 % (30.3-42.9) 12/16/20 04:15 MCV 92 fl (79-97) 12/16/20 04:15 MCH 30 pg (28-32) 12/16/20 04:15 MCHC 33 % (30-34) 12/16/20 04:15 RDW 14.9 % (13.2-15.2) 12/16/20 04:15 Plt Count 247 K/mm3 (140-440) 12/16/20 04:15 Lymph % (Auto) 14.6 % (13.4-35.0) 12/14/20 23:01 [place] % (Auto) 13.5 % (0.0-7.3) H 12/14/20 23:01 Eos % (Auto) 1.4 % (0.0-4.3) 12/14/20 23:01 Baso % (Auto) 0.3 % (0.0-1.8) 12/14/20 23:01 Lymph # (Auto) 1.5 K/mm3 (1.2-5.4) 12/14/20 23:01 [place] # (Auto) 1.4 K/mm3 (0.0-0.8) H 12/14/20 23:01 Eos # (Auto) 0.1 K/mm3 (0.0-0.4) 12/14/20 23:01 Baso # (Auto) 0.0 K/mm3 (0.0-0.1) 12/14/20 23:01 Add Manual Diff Complete 12/16/20 04:15 Total Counted 100 12/16/20 04:15 Seg Neutrophils % [employer] Coordinator 12/16/20 04:15 Seg Neuts % (Manual) 92.0 % (40.0-70.0) H 12/16/20 04:15 Band Neutrophils % 2.0 % 12/16/20 04:15 Lymphocytes % (Manual) 3.0 % (13.4-35.0) L 12/16/20 04:15 Monocytes % (Manual) 3.0 % (0.0-7.3) 12/16/20 04:15 Nucleated RBC % Not Reportable 12/16/20 04:15 Seg Neutrophils # 7.2 K/mm3 (1.8-7.7) 12/14/20 23:01 Seg Neutrophils # Man 25.1 K/mm3 (1.8-7.7) H 12/16/20 04:15 Band Neutrophils # 0.5 K/mm3 12/16/20 04:15 Lymphocytes # (Manual) 0.8 K/mm3 (1.2-5.4) L 12/16/20 04:15 Abs React Lymphs (Man) 0.0 K/mm3 12/16/20 04:15 Monocytes # (Manual) 0.8 K/mm3 (0.0-0.8) 12/16/20 04:15 Eosinophils # (Manual) 0.0 K/mm3 (0.0-0.4) 12/16/20 04:15 Basophils # (Manual) 0.0 K/mm3 (0.0-0.1) 12/16/20 04:15 Metamyelocytes # 0.0 K/mm3 12/16/20 04:15 Myelocytes # 0.0 K/mm3 12/16/20 04:15 Promyelocytes # 0.0 K/mm3 12/16/20 04:15 Blast Cells # 0.0 K/mm3 12/16/20 04:15 WBC Morphology Not Reportable 12/16/20 04:15 Hypersegmented Neuts Not Reportable 12/16/20 04:15 Hyposegmented Neuts Not Reportable 12/16/20 04:15 Hypogranular Neuts Not Reportable 12/16/20 04:15 Smudge Cells Not Reportable 12/16/20 04:15 Toxic Granulation 1+ 12/16/20 04:15 Toxic Vacuolation Few 12/16/20 04:15 Dohle Bodies Not Reportable 12/16/20 04:15 Pelger-Huet Anomaly Not Reportable 12/16/20 04:15 Atul Rods Not Reportable 12/16/20 04:15 Platelet Estimate Consistent w auto 12/16/20 04:15 Clumped Platelets Not Reportable 12/16/20 04:15 Plt Clumps, EDTA Not Reportable 12/16/20 04:15 Large Platelets Not Reportable 12/16/20 04:15 Giant Platelets Not Reportable 12/16/20 04:15 Platelet Satelliting Not Reportable 12/16/20 04:15 Plt Morphology Comment Not Reportable 12/16/20 04:15 RBC Morphology Not Reportable 12/16/20 04:15 Dimorphic RBCs Not Reportable 12/16/20 04:15 Polychromasia Not Reportable 12/16/20 04:15 Hypochromasia Not Reportable 12/16/20 04:15 Poikilocytosis Not Reportable 12/16/20 04:15 Anisocytosis 1+ 12/16/20 04:15 Microcytosis Not Reportable 12/16/20 04:15 Macrocytosis Not Reportable 12/16/20 04:15 Spherocytes Not Reportable 12/16/20 04:15 Pappenheimer Bodies Not Reportable 12/16/20 04:15 Sickle Cells Not Reportable 12/16/20 04:15 Target Cells Not Reportable 12/16/20 04:15 Tear Drop Cells Not Reportable 12/16/20 04:15 Ovalocytes Not Reportable 12/16/20 04:15 Helmet Cells Not Reportable 12/16/20 04:15 [place] Bodies Not Reportable 12/16/20 04:15 Darby Rings Not Reportable 12/16/20 04:15 Leonard Cells Not Reportable 12/16/20 04:15 Bite Cells Not Reportable 12/16/20 04:15 Crenated Cell Not Reportable 12/16/20 04:15 Elliptocytes Not Reportable 12/16/20 04:15 Acanthocytes (Spur) Not Reportable 12/16/20 04:15 Rouleaux Not Reportable 12/16/20 04:15 Hemoglobin C Crystals Not Reportable 12/16/20 04:15 Schistocytes Not Reportable 12/16/20 04:15 Malaria parasites Not Reportable 12/16/20 04:15 August Bodies Not Reportable 12/16/20 04:15 Hem Pathologist Commnt No 12/16/20 04:15 PT 20.3 Sec. (12.2-14.9) H 12/16/20 04:15 INR 1.75 (0.87-1.13) H 12/16/20 04:15 APTT 30.0 Sec. (24.2-36.6) 12/14/20 23:01 Sodium 137 mmol/L (137-145) 12/16/20 04:15 Potassium 5.7 mmol/L (3.6-5.0) H 12/16/20 04:15 Chloride 100.2 mmol/L (98-107) 12/16/20 04:15 Carbon Dioxide 18 mmol/L (22-30) L 12/16/20 04:15 Anion Gap 25 mmol/L 12/16/20 04:15 BUN 47 mg/dL (7-17) H 12/16/20 04:15 Creatinine 7.0 mg/dL (0.6-1.2) H 12/16/20 04:15 Estimated GFR 7 ml/min 12/16/20 04:15 BUN/Creatinine Ratio 7 % 12/16/20 04:15 Glucose 106 mg/dL (65-100) H 12/16/20 04:15 POC Glucose 126 mg/dL (70-105) H 12/15/20 20:56 Lactic Acid 1.10 mmol/L (0.7-2.0) 12/14/20 23:01 Calcium 8.3 mg/dL (8.4-10.2) L 12/16/20 04:15 Phosphorus 7.30 mg/dL (2.5-4.5) H 12/15/20 13:32 Total Bilirubin 1.10 mg/dL (0.1-1.2) 12/14/20 23:01 Direct Bilirubin 0.3 mg/dL (0-0.2) H 12/14/20 23:01 Indirect Bilirubin 0.8 mg/dL 12/14/20 23:01 AST 19 units/L (5-40) 12/14/20 23:01 ALT 8 units/L (7-56) 12/14/20 23:01 Alkaline Phosphatase 121 units/L (35-129) 12/14/20 23:01 Total Creatine Kinase 405 units/L (30-135) H 12/15/20 13:32 Troponin T 0.112 ng/mL (0.00-0.029) H* 12/14/20 23:01 Total Protein 5.2 g/dL (6.3-8.2) L 12/14/20 23:01 Albumin 3.3 g/dL (3.9-5) L 12/14/20 23:01 Albumin/Globulin Ratio 1.7 % 12/14/20 23:01 Triglycerides 153 mg/dL (2-149) H 12/14/20 23:01 Cholesterol 198 mg/dL (50-199) 12/14/20 23:01 LDL Cholesterol Direct 128 mg/dL (50-130) 12/14/20 23:01 HDL Cholesterol 49 mg/dL (40-59) 12/14/20 23:01 Cholesterol/HDL Ratio 4.04 % 12/14/20 23:01 PTH Intact 76.08 pg/mL (15-65) H 12/15/20 13:32 Urine Color Yellow (Yellow) 12/15/20 01:10 Urine Turbidity Slightly-cloudy (Clear) 12/15/20 01:10 Urine pH 5.0 (5.0-7.0) 12/15/20 01:10 Ur Specific [place] 1.010 (1.003-1.030) 12/15/20 01:10 Urine Protein <15 mg/dl mg/dL (Negative) 12/15/20 01:10 Urine Glucose (UA) Neg mg/dL (Negative) 12/15/20 01:10 Urine Ketones Neg mg/dL (Negative) 12/15/20 01:10 Urine Blood Neg (Negative) 12/15/20 01:10 Urine Nitrite Neg (Negative) 12/15/20 01:10 Urine Bilirubin Neg (Negative) 12/15/20 01:10 Urine Urobilinogen 2.0 mg/dL (<2.0) 12/15/20 01:10 Ur Leukocyte Esterase Neg (Negative) 12/15/20 01:10 Urine WBC (Auto) 3.0 /HPF (0.0-6.0) 12/15/20 01:10 Urine RBC (Auto) 2.0 /HPF (0.0-6.0) 12/15/20 01:10 U Epithel Cells (Auto) < 1.0 /HPF (0-13.0) 12/15/20 01:10 Urine Yeast (Budding) 2+ /HPF 12/15/20 01:10 Microbiology: Microbiology 12/14/20 22:33 Peripheral/Venous Blood Culture - Preliminary NO GROWTH AFTER 24 HOURS 12/14/20 23:01 Peripheral/Venous Blood Culture - Preliminary NO GROWTH AFTER 24 HOURS Gordon/IV: Voiding Method Indwelling Catheter Active Medications - Current Medications Current Medications: Generic Name Dose Route Start Last Admin Trade Name Freq PRN Reason Stop Dose Admin Acetaminophen 650 mg 12/15/20 02:11 Acetaminophen 325 Mg Tab PO Q4H PRN Pain MILD(1-3)/Fever >100.5/OLIVER Dextrose 50 ml 12/15/20 02:11 Dextrose 50% In Water (25gm) 50 Ml Syringe IV Q30MIN PRN Hypoglycemia Protocol Heparin Sodium (Porcine) 5,000 unit 12/15/20 06:00 12/16/20 05:00 Heparin 5,000 Unit/1 Ml Vial SUB-Q 5,000 unit Q8HR MIKE Administration Sodium Chloride 1,000 mls @ 125 mls/hr 12/15/20 02:15 12/16/20 04:55 Nacl 0.9% 1000 Ml IV 125 mls/hr DIRECT MIKE Administration Insulin Human Regular 0 units 12/15/20 07:30 12/16/20 08:38 Insulin Regular, Human 100 Units/1 Ml SUB-Q Not Given ACHS MIKE Protocol Magnesium Hydroxide 30 ml 12/15/20 02:11 Magnesium Hydroxide (Mom) Oral Liqd Udc PO Q4H PRN Constipation Ondansetron HCl 4 mg 12/15/20 02:11 Ondansetron 4 Mg/2 Ml Inj IV Q8H PRN Nausea And Vomiting Sodium Chloride 10 ml 12/15/20 10:00 12/15/20 22:01 Sodium Chloride 0.9% 10 Ml Flush Syringe IV 10 ml BID MIKE Administration Sodium Chloride 10 ml 12/15/20 02:11 Sodium Chloride 0.9% 10 Ml Flush Syringe IV PRN PRN LINE FLUSH Nutrition/Malnutrition Assess - Dietary Evaluation Nutrition/Malnutrition Findings: Nutrition Notes Start: 12/15/20 14:43 Freq: Status: Active Protocol: Document 12/15/20 14:43 AL (Rec: 12/15/20 14:54 AL [id number]) Co-Sign 12/15/20 14:43 LP Nutrition Notes Need for Assessment generated from: MD Order,Education Initial or Follow up Assessment Current Diagnosis Acute Kidney Injury,COPD, Diabetes,Hypertension,Stroke Current Diet Cardiac/Consistent Carb Labs/Tests Na 136 BUN 46 Cr 6.9 K 5.2 Pertinent Medications Reviewed Height 5 ft 6 in Weight 125.5 kg [place] Body Weight (kg) 59.09 BMI 44.6 Weight Status Morbidly Obese Subjective/Other Information MD consult for diet education. Pt unable to speak due to AMS and old age. Per RN, pt has poor oral intake <25% of current diet and suggests ordering ONS. Pt on hospice Percent of energy/protein needs met: 28%/29% Burn Absent Trauma Absent Current % PO Poor (25-49%) Minimum of two criteria No Energy Intake (non-severe) <75% Estimated Energy Requirement >7 days #1 Nutrition Diagnosis Inadequate oral intake Etiology AMS, advanced age As Evidenced by Signs and Symptoms pt meets 28%/29% of estimated energy/protein needs PO Is patient on ventilator? No Is Patient Ambulatory and/or Out of Bed No REE-([facility]-confined to bed) 2143.512 Kcal/Kg value to use for calculation 14 Approximate Energy Requirements Using 1757 kcal/Kg Calculation Used for Recommendations Kcal/kg Additional Notes Protein 73.6-110 g (.8-1.2 AdBW 92 kg) Fluid: 1 ml/kcal Nutrition Intervention Change Diet Order: Current diet as ordered Add Supplement/Snack (indicate name/kcal Nepro TID /protein ) Provides kCal: 1,275 Provides Protein (gm) 57 Goal #1 Meet at least 75% of estimated energy and protein needs PO Goal #2 ONS tolerance Anticipated Discharge Needs: Cardiac/Consistent CHO diet Follow-Up By: 12/19/20 Additional Comments FU for intakes and ONS tolerance, diet education needs.
--- NOTE | 2020-12-16 09:26 | Progress Note ---
<CHUY HENLEY - Last Filed: 12/16/20 09:24> Assessment and Plan Elevated troponin pt denies chest pain ECG is SR with RBBB. No acute ischemic changes Dehydration Acute renal failure Leukocytosis COPD Hypertension AND/DNR status Supportive cardiac management. Will follow intermittently. Subjective Date of service: 12/16/20 Interval history: Patient is somnolent. Objective Vital Signs Temp Pulse Resp BP Pulse Ox 12/16/20 04:49 99.3 F 118 H 16 108/47 92 12/15/20 22:00 18 12/15/20 20:59 99.0 F 95 H 16 136/50 89 12/15/20 16:58 99.2 F 105 H 26 H 136/46 97 12/15/20 11:30 98.5 F 88 20 159/43 97 - Physical Examination General: No Apparent Distress Cardiac: Positive: Reg Rate and Rhythm - Labs and Meds Coagulation 12/16/20 Range/Units 04:15 PT 20.3 H (12.2-14.9) Sec. INR 1.75 H (0.87-1.13) CBC 12/16/20 Range/Units 04:15 WBC 27.3 H (4.5-11.0) K/mm3 RBC 3.47 L (3.65-5.03) M/mm3 Hgb 10.5 (10.1-14.3) gm/dl Hct 31.9 (30.3-42.9) % Plt Count 247 (140-440) K/mm3 Comprehensive Metabolic Panel 12/15/20 12/16/20 Range/Units 13:32 04:15 Sodium 136 L 137 (137-145) mmol/L Potassium 5.2 H 5.7 H (3.6-5.0) mmol/L Chloride 99.5 100.2 (98-107) mmol/L Carbon Dioxide 22 18 L (22-30) mmol/L BUN 47 H 47 H (7-17) mg/dL Creatinine 6.7 H 7.0 H (0.6-1.2) mg/dL Glucose 106 H 106 H (65-100) mg/dL Calcium 8.8 8.3 L (8.4-10.2) mg/dL <HANSEL STERN - Last Filed: 12/19/20 07:08> Subjective Interval history: I SAW THIS PT & AGREE WITH THE Dx & Tx Objective Vital Signs Temp Pulse Resp BP Pulse Ox 12/19/20 05:50 97.9 F 89 16 127/60 99 12/19/20 00:16 97.6 F 91 H 18 106/51 99 12/18/20 15:50 98.2 F 92 H 24 113/64 95
[2020-12-16] MEDS ORDERED: SODIUM POLYSTYRENE 15 GM/60 ML ORAL LIQD PO ONE (09:30)
[2020-12-16] MEDS ORDERED: SODIUM POLYSTYRENE 15 GM/60 ML ORAL LIQD PR ONE (09:30)
[2020-12-16] MEDS: CEFEPIME/NS 1 GM/100 ML 1 GM/100 ML BAG IV SCH (09:55)
[2020-12-16] MEDS: ASPIRIN 300 MG RECT SUPP PR SCH (11:17)
--- NOTE | 2020-12-16 14:47 | Vascular Lab Report ---
DUPLEX DOPPLER ULTRASOUND CAROTID, BILATERAL INDICATION / CLINICAL INFORMATION: CVA. COMPARISON: None available. FINDINGS: RIGHT CAROTID: - PLAQUE ESTIMATE (%): < 50% - CCA velocity: 110 cm/sec. - ICA peak systolic velocity: 93 cm/sec. - ICA/CCA PSV Ratio: 0.8 Right Vertebral Artery: Antegrade flow. LEFT CAROTID: - PLAQUE ESTIMATE: < 50% - CCA velocity: 120 cm/sec. - ICA peak systolic velocity: 120 cm/sec. - ICA/CCA PSV Ratio: 1.0 Left Vertebral Artery: Antegrade flow. IMPRESSION: 1. Right Internal Carotid Artery: Less than 50% diameter stenosis. 2. Left Internal Carotid Artery: Less than 50% diameter stenosis. Velocity criteria are extrapolated from diameter data as defined by the Society of Radiologists [place] [facility] Consensus Conference, Radiology 2003; 229;340-346. NO STENOSIS (NORMAL) * Plaque = none; ICA PSV < 125 cm/sec; ICA/CCA PSV Ratio < 2.0 <50% STENOSIS * Plaque < 50%; ICA PSV < 125 cm/sec; ICA/CCA PSV Ratio < 2.0 50-69% STENOSIS * Plaque > 50%; ICA PSV = 125-230 cm/sec; ICA/CCA PSV Ratio = 2.0-4.0 >70% BUT <100% STENOSIS * Plaque > 50%; ICA PSV > 230 cm/sec; ICA/CCA PSV Ratio > 4.0 NEAR OCCLUSION * Plaque = visible lumen; ICA PSV = high/low/none; ICA/CCA PSV Ratio = variable TOTAL OCCLUSION * Plaque = no lumen; ICA PSV = none; ICA/CCA PSV Ratio = N/A Signer Name: Aaron Crockett MD Signed: 12/16/2020 2:42 PM Workstation Name: [facility]-[id number]
--- NOTE | 2020-12-16 17:02 | Progress Note ---
Assessment and Plan 1. Acute kidney injury: Vasomotor HILDA superimposed on CKD in the setting of volume depletion and hypotension. Most likely ATN. Continue IV fluids. Monitor renal function. Renal prognosis is guarded. Avoid nephrotoxic agents. Meds dosage based on GFR. 2. FEN: Hyperkalemia, meds ordered. IV fluids changed to D5 NS. Monitor volume status and lytes. 3. Elevated Troponin: Seen by Cards. 4. Toxic metabolic encephalopathy: Baseline MS is unknown. Monitor. 6. Anemia, POA: Transfuse prn. Monitor. 7. Hypertension: Monitor. Patient is waiting to go to inpatient hospice. Subjective: Patient was seen and examined at the bedside. Spoke to RN. Examination: General appearance: well-developed, appears stated age, not in distress, on mittens HEENT: ATNC Neck: Trachea midline Respiratory: ctab Cardiology: regular, S1S2, no murmur Abdomen: soft, normoactive bowel sounds, not tender, not distended Integumentary: warm and dry, no obvious rash Neurologic: lethargic, non-verbal, not following any command Ext: no edema : Gordon catheter Subjective Date of service: 12/16/20 Objective - Vital Signs Vital signs: Vital Signs - 12hr 12/16/20 12:02 Temperature 98.2 F Pulse Rate 107 H Respiratory 19 Rate Blood Pressure 114/48 O2 Sat by Pulse 90 Oximetry - Lab 12/16/20 16:06 12/16/20 04:15 Most recent lab results Calcium 8.3 mg/dL (8.4-10.2) L 12/16/20 04:15 Phosphorus 7.30 mg/dL (2.5-4.5) H 12/15/20 13:32 Medications & Allergies - Medications Allergies/Adverse Reactions: Allergies duloxetine HCl [From Cymbalta] Allergy (Verified 03/07/17 14:13) LOWERS B/P pregabalin [From Lyrica] Allergy (Verified 03/07/17 14:13) LOWERS B/P quinapril HCl [From Accupril] Allergy (Verified 03/07/17 14:13) LOWERS B/P Home Medications: Home Medications Medication Instructions Recorded Confirmed Last Taken Type Albuterol Mdi (or & Nicu Only) 2 puff IH QID PRN 03/07/17 03/08/17 03/07/17 His tory [ProAir HFA Inhaler] Aspirin [Adult Low Dose Aspirin EC] 81 mg PO QDAY 03/07/17 03/08/17 03/03/17 History Cholecalciferol Vit D3 [Vitamin D3 1,000 unit PO QDAY 03/07/17 03/08/17 03/07/17 History 1,000 UNIT TAB] Cyanocobalamin (Vitamin B-12) 1,000 mcg PO QDAY 03/07/17 03/08/17 03/07/17 History [B-12] Gabapentin 300 mg PO Q8HR 03/07/17 03/08/17 03/07/17 History Losartan [Cozaar] 100 mg PO QDAY 03/07/17 03/08/17 03/08/17 History Nystatin Cream [Mycostatin Cream] 1 applic TP BID 03/07/17 03/08/17 03/07/17 History Pantoprazole [Protonix TAB] 40 mg PO QDAY 03/07/17 03/08/17 03/07/17 History Pravastatin Sodium [Pravastatin] 20 mg PO QDAY 03/07/17 03/08/17 03/07/17 History Sulfamethoxazole/Trimethoprim 1 each PO BID 03/07/17 03/08/17 03/07/17 History [Bactrim DS TAB] carvediloL [Coreg] 12.5 mg PO BID 03/07/17 03/08/17 03/08/17 History oxyCODONE /ACETAMINOPHEN [Percocet 1 tab PO Q4HR #40 tab 03/08/17 Unknown Rx 5/325 mg] Active Medications: Generic Name Dose Route Start Last Admin Trade Name Freq PRN Reason Stop Dose Admin Acetaminophen 650 mg 12/15/20 02:11 Acetaminophen 325 Mg Tab PO Q4H PRN Pain MILD(1-3)/Fever >100.5/OLIVER Aspirin 300 mg 12/16/20 10:00 12/16/20 11:17 Aspirin 300 Mg Rect Supp [place] 300 mg QDAY MIKE Administration Atorvastatin Calcium 40 mg 12/16/20 22:00 Atorvastatin 40 Mg Tab PO QHS MIKE Dextrose 50 ml 12/15/20 02:11 Dextrose 50% In Water (25gm) 50 Ml Syringe IV Q30MIN PRN Hypoglycemia Protocol Heparin Sodium (Porcine) 5,000 unit 12/15/20 06:00 12/16/20 14:39 Heparin 5,000 Unit/1 Ml Vial SUB-Q Not Given Q8HR MIKE Sodium Chloride 1,000 mls @ 125 mls/hr 12/15/20 02:15 12/16/20 09:55 Nacl 0.9% 1000 Ml IV 125 mls/hr DIRECT MIKE Administration Cefepime HCl 1 gm in 100 mls @ 200 mls/hr 12/16/20 10:00 12/16/20 10:25 Cefepime/Ns 1 Gm/100 Ml IV Infused Q24HR [facility] Infusion Protocol Insulin Human Regular 0 units 12/15/20 07:30 12/16/20 15:38 Insulin Regular, Human 100 Units/1 Ml SUB-Q Not Given ACHS [facility] Protocol Magnesium Hydroxide 30 ml 12/15/20 02:11 Magnesium Hydroxide (Mom) Oral Liqd Udc PO Q4H PRN Constipation Ondansetron HCl 4 mg 12/15/20 02:11 Ondansetron 4 Mg/2 Ml Inj IV Q8H PRN Nausea And Vomiting Sodium Chloride 10 ml 12/15/20 10:00 12/16/20 10:00 Sodium Chloride 0.9% 10 Ml Flush Syringe IV 10 ml BID MIKE Administration Sodium Chloride 10 ml 12/15/20 02:11 Sodium Chloride 0.9% 10 Ml Flush Syringe IV PRN PRN LINE FLUSH
[2020-12-16 17:11] LABS: Hematocrit 31.1 % (30.3-42.9); Mean Corpuscular HGB Conc 32 % (30-34); Mean Corpuscular Volume 93 fl (79-97); Platelet Count 246 K/mm3 (140-440); Red Blood Count 3.35 M/mm3 (3.65-5.03)
[2020-12-16] MEDS ORDERED: INSULIN REGULAR, HUMAN 100 UNITS/1 ML IV ONE (18:00)
[2020-12-16] MEDS ORDERED: D5W/0.9% NACL 1,000 ML IV SCH (18:00)
[2020-12-16] MEDS ORDERED: SODIUM BICARB 8.4% 50 MEQ/50 ML SYRINGE IV ONE (18:00)
[2020-12-16] MEDS ORDERED: DEXTROSE 50% IN WATER (25GM) 50 ML SYRINGE IV ONE (18:00)
[2020-12-16 19:57] LABS: Band Neutrophils # (Manual) 2.6 K/mm3; Total Cells Counted 100
[2020-12-16 19:59] LABS: Anisocytosis RARE; Ovalocytes Rare; Tear Drop Cells Rare
[2020-12-16 20:01] LABS: Large Platelets Rare; Platelet Estimate Consistent w Auto
[2020-12-17] MEDS: HEPARIN 5,000 UNIT/1 ML VIAL SUB-Q SCH ×3 (05:16→21:03)
[2020-12-17] MEDS: INSULIN REGULAR, HUMAN 100 UNITS/1 ML SUB-Q SCH ×4 (08:29→23:05)
[2020-12-17] MEDS: CEFEPIME/NS 1 GM/100 ML 1 GM/100 ML BAG IV SCH (09:15)
--- NOTE | 2020-12-17 10:43 | Progress Note ---
Assessment and Plan 1. Abnormal EKG 2. Chronic renal insufficiency 3. Type 2 diabetes mellitus 4. Chronic obstructive pulmonary disease 5. Essential hypertension 6. Persistent leukocytosis Plan Cardiac easley stable patient is not a candidate for invasive cardiac management Subjective Date of service: 12/17/20 Interval history: No change in clinical status Objective Vital Signs Temp Pulse Resp BP BP Pulse Ox 12/17/20 05:19 98.8 F 20 131/77 12/16/20 22:17 98.4 F 89 16 103/35 92 12/16/20 22:00 16 103/35 12/16/20 16:19 98.2 F 104 H 19 144/53 96 12/16/20 12:02 98.2 F 107 H 19 114/48 90 - Physical Examination General: No Apparent Distress, Other (obese) HEENT: Positive: PERRL, Normocephaly Neck: Positive: neck supple. Negative: JVD/HJR Cardiac: Positive: Regular Rate, S1/S2, PMI, Laterally Displaced. Negative: S3, S4 Lungs: Positive: clear to auscultation, No Wheeze, Rales, Rhonchi Abdomen: Positive: Unremarkable, Soft Extremities: Absent: edema - Labs and Meds CBC 12/16/20 Range/Units 16:06 WBC 29.2 H (4.5-11.0) K/mm3 RBC 3.35 L (3.65-5.03) M/mm3 Hgb 10.0 L (10.1-14.3) gm/dl Hct 31.1 (30.3-42.9) % Plt Count 246 (140-440) K/mm3 Lymph # (Auto) Mixer Foam Rubber [place] # (Auto) Mixer Foam Rubber Eos # (Auto) Mixer Foam Rubber Baso # (Auto) Mixer Foam Rubber - Telemetry EKG Rhythm: Sinus Rhythm
[2020-12-17] MEDS: ASPIRIN 300 MG RECT SUPP PR SCH (11:02)
[2020-12-17] MEDS ORDERED: SODIUM POLYSTYRENE 15 GM/60 ML ORAL LIQD PR ONE ×2 (11:07→15:00)
--- NOTE | 2020-12-17 11:20 | Progress Note ---
Assessment and Plan Assessment and plan: 70-year-old -Nepalese female who is also a DNR with known history of COPD, CVA, hypertension and diabetes mellitus brought to the emergency room via EMS from home because of decreased oral intake and generalized weakness. Patient was said to have had a fall about 3 days ago and since then patient condition has been declining. She has not been able to ambulate very well and has been having decreased oral intake. There has been no fever or chills, no nausea vomiting, no abdominal pain, no diarrhea, no hematuria or dysuria. There has been no history of head injury or seizure disorder. No known history of sick contacts and no recent travel. No contacts with anyone with COVID-19. Patient had some morphine prior to arrival in the emergency room and since arrival has been quite drowsy and unable to have any verbal communication during this exam. Work-up in the emergency room, significant findings is that of elevated BUN and creatinine. Other work-up has been within normal limits. Patient is being admitted for dehydration and generalized weakness. Acute metabolic encephalopathy etiology still questionable Leukocytosis unknown source Acute kidney injury likely secondary to ATN Dehydration Diabetes mellitus Hyperkalemia Type II AK Morbidly obese BMI 45 COPD without acute exacerbation Prior history of CVA Hypertension Recurrent falls Plan 12/16: Patient of admission was ruled out for stroke with a CT which was negative considering that this has been 3 days of worsening mental status was anticipated that if there is a stroke it would show on the CT regardless the patient also h ad type II AK for which cardiology was consulted and recommended conservative management which will continue in respect to cardiology. Also discussed with the daughter who does not want any heroic measures and would like the patient placed to a correction with hospice. Patient continues to have decreased oral intake family did not want any life prolonging measures including tube feeds. Today patient is noted to have leukocytosis unknown etiology we will repeat study. We will also obtain an MRI asked family interested to know if there was a definite new stroke. While this is going on we will continue work-up we will start the patient on aspirin and statin. 12/17: Will Obtain ID consult on WBC that is continued rising, will also check Lactic acid, still awaiting Hospice placement but want to rule out any other pathology that does not require invasive procedure. Will place NGT to give Kayaxlate due to worsening Hyperkalemia DVT and GI prophylaxis Start the patient on empiric antibiotics. Ideally if further studies were approved by family would have pursued a lumbar puncture but the futility of this study at this time is questionable. Patient has no fever except the noted altered mental status. Will give Kayexalate will probably put an NG tube for temporary corrective measures of electrolytes and not for life prolonging measures We will obtain speech evaluation Keep patient head of bed up to prevent aspiration. History Interval history: Patient seen and examined remains with some confusion, refusing meds. Hospitalist Physical - Physical exam Narrative exam: VITAL SIGNS: Reviewed. GENERAL: The patient appears normally developed, morbidly obese, otherwise confused vital signs as documented. HEAD: No signs of head trauma. EYES: Pupils are equal. Extraocular motions intact. EARS: Hearing grossly intact. MOUTH: Oropharynx is normal. NECK: No adenopathy, no JVD. CHEST: Chest with clear breath sounds bilaterally. No wheezes, rales, or rhonchi. CARDIAC: Regular rate and rhythm. S1 and S2, without murmurs, gallops, or rubs. VASCULAR: No Edema. Peripheral pulses normal and equal in all extremities. ABDOMEN: Soft, non tender and non distended. No rebound or guarding, and no masses palpated. Bowel Sounds normal. MUSCULOSKELETAL: Good range of motion of all major joints. Extremities without clubbing, cyanosis or edema. NEUROLOGIC EXAM: Awake with no focal sensory or strength deficits. PSYCHIATRIC: Mood normal. SKIN: detail exam as documented in skin assessment - Constitutional Vitals: Temp Pulse Resp BP Pulse Ox 98.8 F 89 20 131/77 92 12/17/20 05:19 12/16/20 22:17 12/17/20 05:19 12/17/20 05:19 12/16/20 22:17 General appearance: Present: no acute distress, obese HEART Score - HEART Score Troponin: Troponin T 0.112 ng/mL (0.00-0.029) H* 12/14/20 23:01 Results - Labs CBC & Chem 7: 12/16/20 16:06 12/16/20 04:15 Labs: Laboratory Last Values WBC 29.2 K/mm3 (4.5-11.0) H 12/16/20 16:06 RBC 3.35 M/mm3 (3.65-5.03) L 12/16/20 16:06 Hgb 10.0 gm/dl (10.1-14.3) L 12/16/20 16:06 Hct 31.1 % (30.3-42.9) 12/16/20 16:06 MCV 93 fl (79-97) 12/16/20 16:06 MCH 30 pg (28-32) 12/16/20 16:06 MCHC 32 % (30-34) 12/16/20 16:06 RDW 15.0 % (13.2-15.2) 12/16/20 16:06 Plt Count 246 K/mm3 (140-440) 12/16/20 16:06 Lymph % (Auto) Environmental Health Technician 12/16/20 16:06 [place] % (Auto) Environmental Health Technician 12/16/20 16:06 Eos % (Auto) Environmental Health Technician 12/16/20 16:06 Baso % (Auto) Environmental Health Technician 12/16/20 16:06 Lymph # (Auto) Environmental Health Technician 12/16/20 16:06 [place] # (Auto) Environmental Health Technician 12/16/20 16:06 Eos # (Auto) Environmental Health Technician 12/16/20 16:06 Baso # (Auto) Environmental Health Technician 12/16/20 16:06 Add Manual Diff Complete 12/16/20 16:06 Total Counted 100 12/16/20 16:06 Seg Neutrophils % Environmental Health Technician 12/16/20 16:06 Seg Neuts % (Manual) 86.0 % (40.0-70.0) H 12/16/20 16:06 Band Neutrophils % 9.0 % 12/16/20 16:06 Lymphocytes % (Manual) 1.0 % (13.4-35.0) L 12/16/20 16:06 Monocytes % (Manual) 4.0 % (0.0-7.3) 12/16/20 16:06 Nucleated RBC % 1.0 % (0.0-0.9) H 12/16/20 16:06 Seg Neutrophils # Environmental Health Technician 12/16/20 16:06 Seg Neutrophils # Man 25.1 K/mm3 (1.8-7.7) H 12/16/20 16:06 Band Neutrophils # 2.6 K/mm3 12/16/20 16:06 Lymphocytes # (Manual) 0.3 K/mm3 (1.2-5.4) L 12/16/20 16:06 Abs React Lymphs (Man) 0.0 K/mm3 12/16/20 16:06 Monocytes # (Manual) 1.2 K/mm3 (0.0-0.8) H 12/16/20 16:06 Eosinophils # (Manual) 0.0 K/mm3 (0.0-0.4) 12/16/20 16:06 Basophils # (Manual) 0.0 K/mm3 (0.0-0.1) 12/16/20 16:06 Metamyelocytes # 0.0 K/mm3 12/16/20 16:06 Myelocytes # 0.0 K/mm3 12/16/20 16:06 Promyelocytes # 0.0 K/mm3 12/16/20 16:06 Blast Cells # 0.0 K/mm3 12/16/20 16:06 WBC Morphology Not Reportable 12/16/20 16:06 Hypersegmented Neuts Not Reportable 12/16/20 16:06 Hyposegmented Neuts Not Reportable 12/16/20 16:06 Hypogranular Neuts Not Reportable 12/16/20 16:06 Smudge Cells Not Reportable 12/16/20 16:06 Toxic Granulation Not Reportable 12/16/20 16:06 Toxic Vacuolation Not Reportable 12/16/20 16:06 Dohle Bodies Not Reportable 12/16/20 16:06 Pelger-Huet Anomaly Not Reportable 12/16/20 16:06 Atul Rods Not Reportable 12/16/20 16:06 Platelet Estimate Consistent w auto 12/16/20 16:06 Clumped Platelets Not Reportable 12/16/20 16:06 Plt Clumps, EDTA Not Reportable 12/16/20 16:06 Large Platelets Rare 12/16/20 16:06 Giant Platelets Not Reportable 12/16/20 16:06 Platelet Satelliting Not Reportable 12/16/20 16:06 Plt Morphology Comment Not Reportable 12/16/20 16:06 RBC Morphology Not Reportable 12/16/20 16:06 Dimorphic RBCs Not Reportable 12/16/20 16:06 Polychromasia Not Reportable 12/16/20 16:06 Hypochromasia Not Reportable 12/16/20 16:06 Poikilocytosis Not Reportable 12/16/20 16:06 Anisocytosis Rare 12/16/20 16:06 Microcytosis Not Reportable 12/16/20 16:06 Macrocytosis Not Reportable 12/16/20 16:06 Spherocytes Not Reportable 12/16/20 16:06 Pappenheimer Bodies Not Reportable 12/16/20 16:06 Sickle Cells Not Reportable 12/16/20 16:06 Target Cells Not Reportable 12/16/20 16:06 Tear Drop Cells Rare 12/16/20 16:06 Ovalocytes Rare 12/16/20 16:06 Helmet Cells Not Reportable 12/16/20 16:06 [place] Bodies Not Reportable 12/16/20 16:06 [place] Rings Not Reportable 12/16/20 16:06 [place] Cells Not Reportable 12/16/20 16:06 Bite Cells Not Reportable 12/16/20 16:06 Crenated Cell Not Reportable 12/16/20 16:06 Elliptocytes Not Reportable 12/16/20 16:06 Acanthocytes (Spur) Not Reportable 12/16/20 16:06 Rouleaux Not Reportable 12/16/20 16:06 Hemoglobin C Crystals Not Reportable 12/16/20 16:06 Schistocytes Not Reportable 12/16/20 16:06 Malaria parasites Not Reportable 12/16/20 16:06 August Bodies Not Reportable 12/16/20 16:06 Hem Pathologist Commnt No 12/16/20 16:06 PT 20.3 Sec. (12.2-14.9) H 12/16/20 04:15 INR 1.75 (0.87-1.13) H 12/16/20 04:15 APTT 30.0 Sec. (24.2-36.6) 12/14/20 23:01 Sodium 137 mmol/L (137-145) 12/16/20 04:15 Potassium 5.7 mmol/L (3.6-5.0) H 12/16/20 04:15 Chloride 100.2 mmol/L (98-107) 12/16/20 04:15 Carbon Dioxide 18 mmol/L (22-30) L 12/16/20 04:15 Anion Gap 25 mmol/L 12/16/20 04:15 BUN 47 mg/dL (7-17) H 12/16/20 04:15 Creatinine 7.0 mg/dL (0.6-1.2) H 12/16/20 04:15 Estimated GFR 7 ml/min 12/16/20 04:15 BUN/Creatinine Ratio 7 % 12/16/20 04:15 Glucose 106 mg/dL (65-100) H 12/16/20 04:15 POC Glucose 179 mg/dL (70-105) H 12/16/20 22:00 Lactic Acid 1.10 mmol/L (0.7-2.0) 12/14/20 23:01 Calcium 8.3 mg/dL (8.4-10.2) L 12/16/20 04:15 Phosphorus 7.30 mg/dL (2.5-4.5) H 12/15/20 13:32 Total Bilirubin 1.10 mg/dL (0.1-1.2) 12/14/20 23:01 Direct Bilirubin 0.3 mg/dL (0-0.2) H 12/14/20 23:01 Indirect Bilirubin 0.8 mg/dL 12/14/20 23:01 AST 19 units/L (5-40) 12/14/20 23:01 ALT 8 units/L (7-56) 12/14/20 23:01 Alkaline Phosphatase 121 units/L (35-129) 12/14/20 23:01 Total Creatine Kinase 405 units/L (30-135) H 12/15/20 13:32 Troponin T 0.112 ng/mL (0.00-0.029) H* 12/14/20 23:01 Total Protein 5.2 g/dL (6.3-8.2) L 12/14/20 23:01 Albumin 3.3 g/dL (3.9-5) L 12/14/20 23:01 Albumin/Globulin Ratio 1.7 % 12/14/20 23:01 Triglycerides 153 mg/dL (2-149) H 12/14/20 23:01 Cholesterol 198 mg/dL (50-199) 12/14/20 23:01 LDL Cholesterol Direct 128 mg/dL (50-130) 12/14/20 23:01 HDL Cholesterol 49 mg/dL (40-59) 12/14/20 23:01 Cholesterol/HDL Ratio 4.04 % 12/14/20 23:01 PTH Intact 76.08 pg/mL (15-65) H 12/15/20 13:32 Urine Color Yellow (Yellow) 12/15/20 01:10 Urine Turbidity Slightly-cloudy (Clear) 12/15/20 01:10 Urine pH 5.0 (5.0-7.0) 12/15/20 01:10 Ur Specific [place] 1.010 (1.003-1.030) 12/15/20 01:10 Urine Protein <15 mg/dl mg/dL (Negative) 12/15/20 01:10 Urine Glucose (UA) Neg mg/dL (Negative) 12/15/20 01:10 Urine Ketones Neg mg/dL (Negative) 12/15/20 01:10 Urine Blood Neg (Negative) 12/15/20 01:10 Urine Nitrite Neg (Negative) 12/15/20 01:10 Urine Bilirubin Neg (Negative) 12/15/20 01:10 Urine Urobilinogen 2.0 mg/dL (<2.0) 12/15/20 01:10 Ur Leukocyte Esterase Neg (Negative) 12/15/20 01:10 Urine WBC (Auto) 3.0 /HPF (0.0-6.0) 12/15/20 01:10 Urine RBC (Auto) 2.0 /HPF (0.0-6.0) 12/15/20 01:10 U Epithel Cells (Auto) < 1.0 /HPF (0-13.0) 12/15/20 01:10 Urine Yeast (Budding) 2+ /HPF 12/15/20 01:10 Coronavirus (PCR) Negative (Negative) 12/16/20 Unknown Microbiology: Microbiology 12/14/20 22:33 Peripheral/Venous Blood Culture - Preliminary NO GROWTH AFTER 48 HOURS 12/14/20 23:01 Peripheral/Venous Blood Culture - Preliminary NO GROWTH AFTER 48 HOURS Gordon/IV: Voiding Method Indwelling Catheter Active Medications - Current Medications Current Medications: Generic Name Dose Route Start Last Admin Trade Name Freq PRN Reason Stop Dose Admin Acetaminophen 650 mg 12/15/20 02:11 Acetaminophen 325 Mg Tab PO Q4H PRN Pain MILD(1-3)/Fever >100.5/OLIVER Aspirin 300 mg 12/16/20 10:00 12/17/20 11:02 Aspirin 300 Mg Rect Supp CA 300 mg QDAY MIKE Administration Atorvastatin Calcium 40 mg 12/16/20 22:00 12/16/20 22:10 Atorvastatin 40 Mg Tab PO Not Given QHS MIKE Dextrose 50 ml 12/15/20 02:11 Dextrose 50% In Water (25gm) 50 Ml Syringe IV Q30MIN PRN Hypoglycemia Protocol Heparin Sodium (Porcine) 5,000 unit 12/15/20 06:00 12/17/20 05:16 Heparin 5,000 Unit/1 Ml Vial SUB-Q 5,000 unit Q8HR MIKE Administration Cefepime HCl 1 gm in 100 mls @ 200 mls/hr 12/16/20 10:00 12/17/20 11:01 Cefepime/Ns 1 Gm/100 Ml IV Infused Q24HR MIKE Infusion Protocol Dextrose/Sodium Chloride 1,000 mls @ 75 mls/hr 12/16/20 18:00 12/17/20 07:10 D5ns IV 0 mls/hr DIRECT MIKE Infusion Insulin Human Regular 0 units 12/15/20 07:30 12/17/20 08:29 Insulin Regular, Human 100 Units/1 Ml SUB-Q 2 units ACHS MIKE Administration Protocol Magnesium Hydroxide 30 ml 12/15/20 02:11 Magnesium Hydroxide (Mom) Oral Liqd Udc PO Q4H PRN Constipation Ondansetron HCl 4 mg 12/15/20 02:11 Ondansetron 4 Mg/2 Ml Inj IV Q8H PRN Nausea And Vomiting Sodium Chloride 10 ml 12/15/20 10:00 12/17/20 09:16 Sodium Chloride 0.9% 10 Ml Flush Syringe IV 10 ml BID MIKE Administration Sodium Chloride 10 ml 12/15/20 02:11 Sodium Chloride 0.9% 10 Ml Flush Syringe IV PRN PRN LINE FLUSH Sodium Polystyrene Sulfonate 30 gm 12/17/20 11:07 Sodium Polystyrene 15 Gm/60 Ml Oral Liqd CA 12/17/20 11:08 ONCE ONE Nutrition/Malnutrition Assess - Dietary Evaluation Nutrition/Malnutrition Findings: Nutrition Notes Start: 12/15/20 14:43 Freq: Status: Active Protocol: Document 12/15/20 14:43 AL (Rec: 12/15/20 14:54 AL [id number]) Co-Sign 12/15/20 14:43 LP Nutrition Notes Need for Assessment generated from: MD Order,Education Initial or Follow up Assessment Current Diagnosis Acute Kidney Injury,COPD, Diabetes,Hypertension,Stroke Current Diet Cardiac/Consistent Carb Labs/Tests Na 136 BUN 46 Cr 6.9 K 5.2 Pertinent Medications Reviewed Height 5 ft 6 in Weight 125.5 kg [place] Body Weight (kg) 59.09 BMI 44.6 Weight Status Morbidly Obese Subjective/Other Information MD consult for diet education. Pt unable to speak due to AMS and old age. Per RN, pt has poor oral intake <25% of current diet and suggests ordering ONS. Pt on hospice Percent of energy/protein needs met: 28%/29% Burn Absent Trauma Absent Current % PO Poor (25-49%) Minimum of two criteria No Energy Intake (non-severe) <75% Estimated Energy Requirement >7 days #1 Nutrition Diagnosis Inadequate oral intake Etiology AMS, advanced age As Evidenced by Signs and Symptoms pt meets 28%/29% of estimated energy/protein needs PO Is patient on ventilator? No Is Patient Ambulatory and/or Out of Bed No REE-([facility]-confined to bed) 2143.512 Kcal/Kg value to use for calculation 14 Approximate Energy Requirements Using 1757 kcal/Kg Calculation Used for Recommendations Kcal/kg Additional Notes Protein 73.6-110 g (.8-1.2 AdBW 92 kg) Fluid: 1 ml/kcal Nutrition Intervention Change Diet Order: Current diet as ordered Add Supplement/Snack (indicate name/kcal Nepro TID /protein ) Provides kCal: 1,275 Provides Protein (gm) 57 Goal #1 Meet at least 75% of estimated energy and protein needs PO Goal #2 ONS tolerance Anticipated Discharge Needs: Cardiac/Consistent CHO diet Follow-Up By: 12/19/20 Additional Comments FU for intakes and ONS tolerance, diet education needs.
--- NOTE | 2020-12-17 11:49 | Progress Note ---
Assessment and Plan 1. Acute kidney injury: Vasomotor HILDA superimposed on CKD in the setting of volume depletion and hypotension. Most likely ATN. Continue IV fluids. Monitor renal function. Renal prognosis is guarded. Avoid nephrotoxic agents. Meds dosage based on GFR. 2. FEN: Hyperkalemia, meds ordered. On IV D5 NS. Monitor volume status and lytes. 3. Elevated Troponin: Seen by Cards. 4. Toxic metabolic encephalopathy: Baseline MS is unknown. Monitor. 6. Anemia, POA: Transfuse prn. Monitor. 7. Hypertension: Monitor. Await transfer to inpatient hospice. Subjective: Patient was seen and examined at the bedside. Examination: General appearance: well-developed, appears stated age, not in distress, on mittens HEENT: ATNC Neck: Trachea midline Respiratory: ctab Cardiology: regular, S1S2, no murmur Abdomen: soft, normoactive bowel sounds, not tender, not distended Integumentary: warm and dry, no obvious rash Neurologic: lethargic, non-verbal, not following any command Ext: no edema : Gordon catheter Subjective Date of service: 12/17/20 Objective - Vital Signs Vital signs: Vital Signs - 12hr 12/17/20 05:19 Temperature 98.8 F Respiratory 20 Rate Blood Pressure 131/77 - Lab 12/16/20 16:06 12/16/20 04:15 Most recent lab results Calcium 8.3 mg/dL (8.4-10.2) L 12/16/20 04:15 Phosphorus 7.30 mg/dL (2.5-4.5) H 12/15/20 13:32 Medications & Allergies - Medications Allergies/Adverse Reactions: Allergies duloxetine HCl [From Cymbalta] Allergy (Verified 03/07/17 14:13) LOWERS B/P pregabalin [From Lyrica] Allergy (Verified 03/07/17 14:13) LOWERS B/P quinapril HCl [From Accupril] Allergy (Verified 03/07/17 14:13) LOWERS B/P Home Medications: Home Medications Medication Instructions Recorded Confirmed Last Taken Type Albuterol Mdi (or & Nicu Only) 2 puff IH QID PRN 03/07/17 03/08/17 03/07/17 History [ProAir HFA Inhaler] Aspirin [Adult Low Dose Aspirin EC] 81 mg PO QDAY 03/07/17 03/08/17 03/03/17 History Cholecalciferol Vit D3 [Vitamin D3 1,000 unit PO QDAY 03/07/17 03/08/17 03/07/17 History 1,000 UNIT TAB] Cyanocobalamin (Vitamin B-12) 1,000 mcg PO QDAY 03/07/17 03/08/17 03/07/17 History [B-12] Gabapentin 300 mg PO Q8HR 03/07/17 03/08/17 03/07/17 History Losartan [Cozaar] 100 mg PO QDAY 03/07/17 03/08/17 03/08/17 History Nystatin Cream [Mycostatin Cream] 1 applic TP BID 03/07/17 03/08/17 03/07/17 History Pantoprazole [Protonix TAB] 40 mg PO QDAY 03/07/17 03/08/17 03/07/17 History Pravastatin Sodium [Pravastatin] 20 mg PO QDAY 03/07/17 03/08/17 03/07/17 History Sulfamethoxazole/Trimethoprim 1 each PO BID 03/07/17 03/08/17 03/07/17 History [Bactrim DS TAB] carvediloL [Coreg] 12.5 mg PO BID 03/07/17 03/08/17 03/08/17 History oxyCODONE /ACETAMINOPHEN [Percocet 1 tab PO Q4HR #40 tab 03/08/17 Unknown Rx 5/325 mg] Active Medications: Generic Name Dose Route Start Last Admin Trade Name Freq PRN Reason Stop Dose Admin Acetaminophen 650 mg 12/15/20 02:11 Acetaminophen 325 Mg Tab PO Q4H PRN Pain MILD(1-3)/Fever >100.5/OLIVER Aspirin 300 mg 12/16/20 10:00 12/17/20 11:02 Aspirin 300 Mg Rect Supp [place] 300 mg QDAY MIKE Administration Atorvastatin Calcium 40 mg 12/16/20 22:00 12/16/20 22:10 Atorvastatin 40 Mg Tab PO Not Given QHS MIKE Dextrose 50 ml 12/15/20 02:11 Dextrose 50% In Water (25gm) 50 Ml Syringe IV Q30MIN PRN Hypoglycemia Protocol Heparin Sodium (Porcine) 5,000 unit 12/15/20 06:00 12/17/20 05:16 Heparin 5,000 Unit/1 Ml Vial SUB-Q 5,000 unit Q8HR MIKE Administration Cefepime HCl 1 gm in 100 mls @ 200 mls/hr 12/16/20 10:00 12/17/20 11:01 Cefepime/Ns 1 Gm/100 Ml IV Infused Q24HR MIKE Infusion Protocol Dextrose/Sodium Chloride 1,000 mls @ 75 mls/hr 12/16/20 18:00 12/17/20 07:10 D5ns IV 0 mls/hr DIRECT MIKE Infusion Insulin Human Regular 0 units 12/15/20 07:30 12/17/20 08:29 Insulin Regular, Human 100 Units/1 Ml SUB-Q 2 units ACHS MIKE Administration Protocol Magnesium Hydroxide 30 ml 12/15/20 02:11 Magnesium Hydroxide (Mom) Oral Liqd Udc PO Q4H PRN Constipation Ondansetron HCl 4 mg 12/15/20 02:11 Ondansetron 4 Mg/2 Ml Inj IV Q8H PRN Nausea And Vomiting Sodium Chloride 10 ml 12/15/20 10:00 12/17/20 09:16 Sodium Chloride 0.9% 10 Ml Flush Syringe IV 10 ml BID MIKE Administration Sodium Chloride 10 ml 12/15/20 02:11 Sodium Chloride 0.9% 10 Ml Flush Syringe IV PRN PRN LINE FLUSH
--- NOTE | 2020-12-17 14:11 | XRay Report ---
ABDOMEN 1 VIEW INDICATION / CLINICAL INFORMATION: dobhoff placement. COMPARISON: None available. FINDINGS: TUBES / LINES: No Dobbhoff tube is identified. BOWEL GAS PATTERN: Mild gaseous distention of the stomach. No dilatation of the small bowel or colon. FREE AIR / EXTRALUMINAL GAS: None seen. ADDITIONAL FINDINGS: Severe lower lumbar spondylosis is noted with prior fusion of L4-L5. Surgical cl ips are noted in the right upper quadrant. IMPRESSION: 1. No Dobbhoff tube is identified. Please correlate with the clinical findings. 2. Nonspecific mild gaseous distention of the stomach. Signer Name: Chevy Pham MD Signed: 12/17/2020 2:06 PM Workstation Name: [id number]
--- NOTE | 2020-12-17 14:23 | Consultation ---
History of Present Illness - Reason for Consult Consult date: 12/17/20 - History of Present Illness 70-year-old female past medical history COPD, CVA, hypertension, diabetes, on home hospice brought to the hospital due to decreased oral intake and generalized weakness. Patient was noted to have a fall 3 days prior and her condition was declining since then. She is unable to ambulate. Otherwise no symptoms. Afebrile since admission with a white count of 29.2. Covid negative. Blood cul tures remain no growth to date. Currently on cefepime. Urine normal Imaging personally reviewed: Hip x-ray: No fracture Chest x-ray: No focal pneumonia. Past History Past Medical History: arthritis, COPD, diabetes, GERD, hypertension, renal failure, stroke, other (History of sickle cell trait, asthma) Past Surgical History: cholecystectomy, Other (Left breast cyst excision) Social history: smoking (Former smoker) Family history: no significant family history Medications and Allergies Allergies Allergy/AdvReac Type Severity Reaction Status Date / Time duloxetine HCl Allergy LOWERS B/P Verified 03/07/17 14:13 [From Cymbalta] pregabalin [From Lyrica] Allergy LOWERS B/P Verified 03/07/17 14:13 quinapril HCl [From Accupril] Allergy LOWERS B/P Verified 03/07/17 14:13 Home Medications Medication Instructions Recorded Confirmed Last Taken Type Albuterol Mdi (or & Nicu Only) 2 puff IH QID PRN 03/07/17 03/08/17 03/07/17 History [ProAir HFA Inhaler] Aspirin [Adult Low Dose Aspirin EC] 81 mg PO QDAY 03/07/17 03/08/17 03/03/17 History Cholecalciferol Vit D3 [Vitamin D3 1,000 unit PO QDAY 03/07/17 03/08/17 03/07/17 History 1,000 UNIT TAB] Cyanocobalamin (Vitamin B-12) 1,000 mcg PO QDAY 03/07/17 03/08/17 03/07/17 History [B-12] Gabapentin 300 mg PO Q8HR 03/07/17 03/08/17 03/07/17 History Losartan [Cozaar] 100 mg PO QDAY 03/07/17 03/08/17 03/08/17 History Nystatin Cream [Mycostatin Cream] 1 applic TP BID 03/07/17 03/08/17 03/07/17 History Pantoprazole [Protonix TAB] 40 mg PO QDAY 03/07/17 03/08/17 03/07/17 History Pravastatin Sodium [Pravastatin] 20 mg PO QDAY 03/07/17 03/08/17 03/07/17 History Sulfamethoxazole/Trimethoprim 1 each PO BID 03/07/17 03/08/17 03/07/17 History [Bactrim DS TAB] carvediloL [Coreg] 12.5 mg PO BID 03/07/17 03/08/17 03/08/17 History oxyCODONE /ACETAMINOPHEN [Percocet 1 tab PO Q4HR #40 tab 03/08/17 Unknown Rx 5/325 mg] Active Meds: Active Medications Acetaminophen (Acetaminophen 325 Mg Tab) 650 mg PO Q4H PRN PRN Reason: Pain MILD(1-3)/Fever >100.5/OLIVER Aspirin (Aspirin 300 Mg Rect Supp) 300 mg MD QDAY MIKE Last Admin: 12/17/20 11:02 Dose: 300 mg Documented by: Atorvastatin Calcium (Atorvastatin 40 Mg Tab) 40 mg PO QHS MIKE Last Admin: 12/16/20 22:10 Dose: Not Given Documented by: Dextrose (Dextrose 50% In Water (25gm) 50 Ml Syringe) 50 ml IV Q30MIN PRN; Protocol PRN Reason: Hypoglycemia Heparin Sodium (Porcine) (Heparin 5,000 Unit/1 Ml Vial) 5,000 unit SUB-Q Q8HR MIKE Last Admin: 12/17/20 05:16 Dose: 5,000 unit Documented by: Cefepime HCl (Cefepime/Ns 1 Gm/100 Ml) 1 gm in 100 mls @ 200 mls/hr IV Q24HR MIKE; Protocol Last Infusion: 12/17/20 11:01 Dose: Infused Documented by: Dextrose/Sodium Chloride (D5ns) 1,000 mls @ 75 mls/hr IV DIRECT MIKE Last Infusion: 12/17/20 07:10 Dose: 0 mls/hr Documented by: Insulin Human Regular (Insulin Regular, Human 100 Units/1 Ml) 0 units SUB-Q ACHS MIKE; Protocol Last Admin: 12/17/20 08:29 Dose: 2 units Documented by: Magnesium Hydroxide (Magnesium Hydroxide (Mom) Oral Liqd Udc) 30 ml PO Q4H PRN PRN Reason: Constipation Ondansetron HCl (Ondansetron 4 Mg/2 Ml Inj) 4 mg IV Q8H PRN PRN Reason: Nausea And Vomiting Sodium Chloride (Sodium Chloride 0.9% 10 Ml Flush Syringe) 10 ml IV BID MIKE Last Admin: 12/17/20 09:16 Dose: 10 ml Documented by: Sodium Chloride (Sodium Chloride 0.9% 10 Ml Flush Syringe) 10 ml IV PRN PRN PRN Reason: LINE FLUSH Review of Systems ROS unobtainable: due to mental status Physical Examination - Physical Exam Narrative exam: Physical Exam: Constitutional: Alert, cooperative. No acute distress Head, Ears, Nose: Normocephalic, atraumatic. External ears, nose normal Eyes: Conjunctivae/corneas clear. No icterus. No ptosis. Neck: Supple, no meningeal signs Oral: dentition fair, no thrush Cardiovascular: S1, S2 normal. Respiratory: Good air entry, clear to auscultation bilaterally GI: Soft, non-tender; bowel sounds normal. No peritoneal signs. Musculoskeletal: Sacral wound Skin: No rash or abscess Hem/Lymphatic: No palpable cervical or supraclavicular nodes. No lymphangitis Psych: Mood ok. Affect normal Neurological: Awake, alert, oriented. No gross abnormality - Constitutional Vitals: Vital Signs Temp Pulse Resp BP Pulse Ox 98.8 F 89 20 131/77 92 12/17/20 05:19 12/16/20 22:17 12/17/20 05:19 12/17/20 05:19 12/16/20 22:17 Temperature -Last 24 Hours Temperature 98.8 F Temperature 98.4 F Temperature 98.2 F Results - Labs CBC & Chem 7: 12/16/20 16:06 12/16/20 04:15 Labs: Abnormal lab results 12/16/20 12/16/20 12/16/20 Range/Units 16:06 16:17 22:00 WBC 29.2 H (4.5-11.0) K/mm3 RBC 3.35 L (3.65-5.03) M/mm3 Hgb 10.0 L (10.1-14.3) gm/dl Seg Neuts % (Manual) 86.0 H (40.0-70.0) % Lymphocytes % (Manual) 1.0 L (13.4-35.0) % Nucleated RBC % 1.0 H (0.0-0.9) % Seg Neutrophils # Man 25.1 H (1.8-7.7) K/mm3 Lymphocytes # (Manual) 0.3 L (1.2-5.4) K/mm3 Monocytes # (Manual) 1.2 H (0.0-0.8) K/mm3 POC Glucose 127 H 179 H (70-105) mg/dL 12/17/20 12/17/20 Range/Units 08:01 11:30 WBC (4.5-11.0) K/mm3 RBC (3.65-5.03) M/mm3 Hgb (10.1-14.3) gm/dl Seg Neuts % (Manual) (40.0-70.0) % Lymphocytes % (Manual) (13.4-35.0) % Nucleated RBC % (0.0-0.9) % Seg Neutrophils # Man (1.8-7.7) K/mm3 Lymphocytes # (Manual) (1.2-5.4) K/mm3 Monocytes # (Manual) (0.0-0.8) K/mm3 POC Glucose 175 H 181 H (70-105) mg/dL Assessment and Plan Cultures: Blood culture 12/14/2020 no growth to date Covid negative A/P: 70-year-old female past medical history COPD, CVA, hypertension, diabetes, on home hospice admitted with HILDA #Leukocytosis: Uncertain etiology. Was normal on admission, however now nearly 30. No other acute infectious symptoms at present. No abnormalities on imaging improved none. Minor sacral wounds, do not appear acutely infected. #Diabetes: tight glycemic control for best outcomes. #COPD #HILDA: Nephrology on board. Likely some component of volume depletion. Recs: -Continue renally dose cefepime for now, likely short course without acute infectious etiology. -Follow-up blood cultures -Procalcitonin likely not useful in setting of HILDA Thank you for the consult, we will continue to follow. Carolyn Gentile MD [facility] ([facility]) O: [phone] F: [phone]
--- NOTE | 2020-12-17 14:46 | XRay Report ---
ABDOMEN 1 VIEW INDICATION / CLINICAL INFORMATION: dobhoff placement. COMPARISON: KUB from earlier today. FINDINGS: TUBES / LINES: A Dobbhoff tube has been placed that terminates laterally along the gastric fundus. BOWEL GAS PATTERN: There is mild gaseous distention of the stomach and small bowel with air noted thr oughout the colon, which is not significantly dilated. FREE AIR / EXTRALUMINAL GAS: None seen. ADDITIONAL FINDINGS: No other significant interval changes. IMPRESSION: Dobbhoff tube as above with a nonspecific, nonobstructive bowel gas pattern. Signer Name: Chevy Pham MD Signed: 12/17/2020 2:41 PM Workstation Name: [id number]
[2020-12-18] MEDS: HEPARIN 5,000 UNIT/1 ML VIAL SUB-Q SCH ×3 (05:18→22:31)
[2020-12-18 06:03] LABS: Basophils % (Auto) 0.2 % (0.0-1.8); Eosinophils % (Auto) 0.1 % (0.0-4.3); Hematocrit 26.1 % (30.3-42.9); Hemoglobin 8.6 gm/dl (10.1-14.3); Lymphocytes # (Auto) 1.2 K/mm3 (1.2-5.4); Mean Corpuscular HGB Conc 33 % (30-34); Mean Corpuscular Volume 91 fl (79-97); Monocytes # (Auto) 1.4 K/mm3 (0.0-0.8); Monocytes % (Auto) 7.2 % (0.0-7.3); Platelet Count 292 K/mm3 (140-440); Red Blood Count 2.85 M/mm3 (3.65-5.03)
[2020-12-18 06:26] LABS: Calcium 8.5 mg/dL (8.4-10.2)
[2020-12-18] MEDS ORDERED: LIP THERAPY VASELINE TP PRN (08:00)
[2020-12-18] MEDS: INSULIN REGULAR, HUMAN 100 UNITS/1 ML SUB-Q SCH ×4 (09:01→22:10)
[2020-12-18] MEDS: CEFEPIME/NS 1 GM/100 ML 1 GM/100 ML BAG IV SCH (09:02)
[2020-12-18] MEDS: ASPIRIN 300 MG RECT SUPP PR SCH (09:03)
--- NOTE | 2020-12-18 09:11 | Progress Note ---
Assessment and Plan 1. Acute kidney injury: Vasomotor HILDA superimposed on CKD in the setting of volume depletion and hypotension. Most likely ATN. Continue IV fluids. Monitor renal function. Renal prognosis is guarded. Avoid nephrotoxic agents. Meds dosage based on GFR. 2. FEN: Hyperkalemia, improved. Monitor volume status and lytes. 3. Elevated Troponin: Seen by Cards. 4. Toxic metabolic encephalopathy: Baseline MS is unknown. Monitor. 6. Anemia, POA: Transfuse prn. Monitor. 7. Hypertension: Monitor. Await transfer to inpatient hospice. Subjective: Patient was seen and examined at the bedside. Examination: General appearance: well-developed, appears stated age, not in distress, on mittens HEENT: ATNC Neck: Trachea midline Respiratory: ctab Cardiology: regular, S1S2, no murmur Abdomen: soft, normoactive bowel sounds, not tender, not distended Integumentary: warm and dry, no obvious rash Neurologic: lethargic, non-verbal, not following any command Ext: no edema : Gordon catheter Subjective Date of service: 12/18/20 Objective - Vital Signs Vital signs: Vital Signs - 12hr 12/17/20 12/17/20 12/18/20 23:45 23:58 00:29 Temperature 98.0 F Pulse Rate 112 H 35 L 75 Respiratory 18 Rate Blood Pressure 70/22 Blood Pressure 65/26 139/62 [Left] O2 Sat by Pulse 92 Oximetry 12/18/20 12/18/20 00:44 05:36 Temperature 99.2 F Pulse Rate 75 102 H Respiratory 24 Rate Blood Pressure 118/60 Blood Pressure 118/61 [Left] O2 Sat by Pulse 94 Oximetry - Lab 12/18/20 05:40 12/18/20 05:40 Most recent lab results Calcium 8.5 mg/dL (8.4-10.2) 12/18/20 05:40 Phosphorus 7.30 mg/dL (2.5-4.5) H 12/15/20 13:32 Medications & Allergies - Medications Allergies/Adverse Reactions: Allergies duloxetine HCl [From Cymbalta] Allergy (Verified 03/07/17 14:13) LOWERS B/P pregabalin [From Lyrica] Allergy (Verified 03/07/17 14:13) LOWERS B/P quinapril HCl [From Accupril] Allergy (Verified 03/07/17 14:13) LOWERS B/P Home Medications: Home Medications Medication Instructions Recorded Confirmed Last Taken Type Albuterol Mdi (or & Nicu Only) 2 puff IH QID PRN 03/07/17 03/08/17 03/07/17 History [ProAir HFA Inhaler] Aspirin [Adult Low Dose Aspirin EC] 81 mg PO QDAY 03/07/17 03/08/17 03/03/17 History Cholecalciferol Vit D3 [Vitamin D3 1,000 unit PO QDAY 03/07/17 03/08/17 03/07/17 History 1,000 UNIT TAB] Cyanocobalamin (Vitamin B-12) 1,000 mcg PO QDAY 03/07/17 03/08/17 03/07/17 History [B-12] Gabapentin 300 mg PO Q8HR 03/07/17 03/08/17 03/07/17 History Losartan [Cozaar] 100 mg PO QDAY 03/07/17 03/08/17 03/08/17 History Nystatin Cream [Mycostatin Cream] 1 applic TP BID 03/07/17 03/08/17 03/07/17 History Pantoprazole [Protonix TAB] 40 mg PO QDAY 03/07/17 03/08/17 03/07/17 History Pravastatin Sodium [Pravastatin] 20 mg PO QDAY 03/07/17 03/08/17 03/07/17 History Sulfamethoxazole/Trimethoprim 1 each PO BID 03/07/17 03/08/17 03/07/17 History [Bactrim DS TAB] carvediloL [Coreg] 12.5 mg PO BID 03/07/17 03/08/17 03/08/17 History oxyCODONE /ACETAMINOPHEN [Percocet 1 tab PO Q4HR #40 tab 03/08/17 Unknown Rx 5/325 mg] cephALEXin [Keflex] 250 mg PO BID #10 capsule 12/19/20 Unknown Rx Active Medications: Generic Name Dose Route Start Last Admin Trade Name Freq PRN Reason Stop Dose Admin Acetaminophen 650 mg 12/15/20 02:11 Acetaminophen 325 Mg Tab PO Q4H PRN Pain MILD(1-3)/Fever >100.5/OLIVER Aspirin 300 mg 12/16/20 10:00 12/18/20 09:03 Aspirin 300 Mg Rect Supp NE Not Given QDAY MIKE Atorvastatin Calcium 40 mg 12/16/20 22:00 12/17/20 21:04 Atorvastatin 40 Mg Tab PO Not Given QHS MIKE Dextrose 50 ml 12/15/20 02:11 Dextrose 50% In Water (25gm) 50 Ml Syringe IV Q30MIN PRN Hypoglycemia Protocol Heparin Sodium (Porcine) 5,000 unit 12/15/20 06:00 12/18/20 05:18 Heparin 5,000 Unit/1 Ml Vial SUB-Q 5,000 unit Q8HR MIKE Administration Hydrophilic Ointment 1 applic 12/18/20 08:00 Lip Therapy Vaseline TP DIRECT PRN Dry Lips Cefepime HCl 1 gm in 100 mls @ 200 mls/hr 12/16/20 10:00 12/18/20 09:02 Cefepime/Ns 1 Gm/100 Ml IV 200 mls/hr Q24HR MIKE Administration Protocol Dextrose/Sodium Chloride 1,000 mls @ 75 mls/hr 12/16/20 18:00 12/17/20 07:10 D5ns IV 0 mls/hr DIRECT MIKE Infusion Insulin Human Regular 0 units 12/15/20 07:30 12/18/20 09:01 Insulin Regular, Human 100 Units/1 Ml SUB-Q 3 units ACHS MIKE Administration Protocol Magnesium Hydroxide 30 ml 12/15/20 02:11 Magnesium Hydroxide (Mom) Oral Liqd Udc PO Q4H PRN Constipation Ondansetron HCl 4 mg 12/15/20 02:11 Ondansetron 4 Mg/2 Ml Inj IV Q8H PRN Nausea And Vomiting Sodium Chloride 10 ml 12/15/20 10:00 12/18/20 09:02 Sodium Chloride 0.9% 10 Ml Flush Syringe IV 10 ml BID MIKE Administration Sodium Chloride 10 ml 12/15/20 02:11 Sodium Chloride 0.9% 10 Ml Flush Syringe IV PRN PRN LINE FLUSH
--- NOTE | 2020-12-18 09:50 | Progress Note ---
Assessment and Plan 1. Abnormal EKG 2. Chronic renal insufficiency 3. Type 2 diabetes mellitus 4. Chronic obstructive pulmonary disease 5. Essential hypertension 6. Persistent leukocytosis Plan Cardiac easley stable patient is not a candidate for invasive cardiac management Subjective Date of service: 12/18/20 Interval history: No change in clinical status Objective Vital Signs Temp Pulse Resp BP BP Pulse Ox 12/18/20 05:36 99.2 F 102 H 24 118/60 94 12/18/20 00:44 75 118/61 12/18/20 00:29 75 139/62 12/17/20 23:58 35 L 65/26 12/17/20 23:45 98.0 F 112 H 18 70/22 92 12/17/20 16:47 98.6 F 107 H 26 H 91 12/17/20 16:43 98.6 F 107 H 26 H 152/67 71 L 12/17/20 11:42 97.7 F 99 H 24 133/68 100 - Physical Examination General: No Apparent Distress, Other (obese) HEENT: Positive: PERRL, Normocephaly Neck: Positive: neck supple. Negative: JVD/HJR Cardiac: Positive: Regular Rate, S1/S2, PMI, Laterally Displaced. Negative: S3 Lungs: Positive: clear to auscultation, No Wheeze, Rales, Rhonchi Abdomen: Positive: Unremarkable, Soft Extremities: Absent: edema - Labs and Meds CBC 12/18/20 Range/Units 05:40 WBC 19.3 H (4.5-11.0) K/mm3 RBC 2.85 L (3.65-5.03) M/mm3 Hgb 8.6 L (10.1-14.3) gm/dl Hct 26.1 L (30.3-42.9) % Plt Count 292 (140-440) K/mm3 Lymph # (Auto) 1.2 (1.2-5.4) K/mm3 Mckinley # (Auto) 1.4 H (0.0-0.8) K/mm3 Eos # (Auto) 0.0 (0.0-0.4) K/mm3 Baso # (Auto) 0.0 (0.0-0.1) K/mm3 Comprehensive Metabolic Panel 12/18/20 Range/Units 05:40 Sodium 144 D (137-145) mmol/L Potassium 4.8 (3.6-5.0) mmol/L Chloride 106.0 (98-107) mmol/L Carbon Dioxide 20 L (22-30) mmol/L BUN 61 H (7-17) mg/dL Creatinine 7.3 H (0.6-1.2) mg/dL Glucose 262 H (65-100) mg/dL Calcium 8.5 (8.4-10.2) mg/dL
--- NOTE | 2020-12-18 10:05 | Progress Note ---
Assessment and Plan Assessment and plan: 70-year-old -[place] female who is also a DNR with known history of COPD, CVA, hypertension and diabetes mellitus brought to the emergency room via EMS from home because of decreased oral intake and generalized weakness. Patient was said to have had a fall about 3 days ago and since then patient condition has been declining. She has not been able to ambulate very well and has been having decreased oral intake. There has been no fever or chills, no nausea vomiting, no abdominal pain, no diarrhea, no hematuria or dysuria. There has been no history of head injury or seizure disorder. No known history of sick contacts and no recent travel. No contacts with anyone with COVID-19. Patient had some morphine prior to arrival in the emergency room and since arrival has been quite drowsy and unable to have any verbal communication during this exam. Work-up in the emergency room, significant findings is that of elevated BUN and creatinine. Other work-up has been within normal limits. Patient is being admitted for dehydration and generalized weakness. Acute metabolic encephalopathy etiology still questionable Leukocytosis unknown source Acute kidney injury likely secondary to ATN Dehydration Diabetes mellitus Hyperkalemia Type II AK Morbidly obese BMI 45 COPD without acute exacerbation Prior history of CVA Hypertension Recurrent falls Plan 12/16: Patient of admission was ruled out for stroke with a CT which was negative considering that this has been 3 days of worsening mental status was anticipated that if there is a stroke it would show on the CT regardless the patient also h ad type II AK for which cardiology was consulted and recommended conservative management which will continue in respect to cardiology. Also discussed with the daughter who does not want any heroic measures and would like the patient [facility] with hospice. Patient continues to have decreased oral intake family did not want any life prolonging measures including tube feeds. Today patient is noted to have leukocytosis unknown etiology we will repeat study. We will also obtain an MRI asked family interested to know if there was a definite new stroke. While this is going on we will continue work-up we will start the patient on aspirin and statin. 12/17: Will Obtain ID consult on WBC that is continued rising, will also check Lactic acid, still awaiting Hospice placement but want to rule out any other pathology that does not require invasive procedure. Will place NGT to give Kayaxlate due to worsening Hyperkalemia 12/18: White count and potassium are improving. Continue to monitor. Awaiting placement for inpatient hospice DVT and GI prophylaxis Start the patient on empiric antibiotics. Ideally if further studies were approved by family would have pursued a lumbar puncture but the futility of this study at this time is questionable. Patient has no fever except the noted altered mental status. Will give Kayexalate will probably put an NG tube for temporary corrective measures of electrolytes and not for life prolonging measures We will obtain speech evaluation Keep patient head of bed up to prevent aspiration. History Interval history: Patient seen and examined remains with some confusion, asking for something to drink Hospitalist Physical - Physical exam Narrative exam: VITAL SIGNS: Reviewed. GENERAL: The patient appears normally developed, morbidly obese, otherwise confused vital signs as documented. HEAD: No signs of head trauma. EYES: Pupils are equal. Extraocular motions intact. EARS: Hearing grossly intact. MOUTH: Oropharynx is normal. NECK: No adenopathy, no JVD. CHEST: Chest with clear breath sounds bilaterally. No wheezes, rales, or rhonchi. CARDIAC: Regular rate and rhythm. S1 and S2, without murmurs, gallops, or rubs. VASCULAR: No Edema. Peripheral pulses normal and equal in all extremities. ABDOMEN: Soft, non tender and non distended. No rebound or guarding, and no masses palpated. Bowel Sounds normal. MUSCULOSKELETAL: Good range of motion of all major joints. Extremities without clubbing, cyanosis or edema. NEUROLOGIC EXAM: Awake with no focal sensory or strength deficits. PSYCHIATRIC: Mood normal. SKIN: detail exam as documented in skin assessment - Constitutional Vitals: Temp Pulse Resp BP Pulse Ox 99.2 F 102 H 24 118/60 94 12/18/20 05:36 12/18/20 05:36 12/18/20 05:36 12/18/20 05:36 12/18/20 05:36 General appearance: Present: no acute distress, obese HEART Score - HEART Score Troponin: Troponin T 0.112 ng/mL (0.00-0.029) H* 12/14/20 23:01 Results - Labs CBC & Chem 7: 12/18/20 05:40 12/18/20 05:40 Labs: Laboratory Last Values WBC 19.3 K/mm3 (4.5-11.0) H 12/18/20 05:40 RBC 2.85 M/mm3 (3.65-5.03) L 12/18/20 05:40 Hgb 8.6 gm/dl (10.1-14.3) L 12/18/20 05:40 Hct 26.1 % (30.3-42.9) L 12/18/20 05:40 MCV 91 fl (79-97) 12/18/20 05:40 MCH 30 pg (28-32) 12/18/20 05:40 MCHC 33 % (30-34) 12/18/20 05:40 RDW 15.0 % (13.2-15.2) 12/18/20 05:40 Plt Count 292 K/mm3 (140-440) 12/18/20 05:40 Lymph % (Auto) 6.0 % (13.4-35.0) L 12/18/20 05:40 [place] % (Auto) 7.2 % (0.0-7.3) 12/18/20 05:40 Eos % (Auto) 0.1 % (0.0-4.3) 12/18/20 05:40 Baso % (Auto) 0.2 % (0.0-1.8) 12/18/20 05:40 Lymph # (Auto) 1.2 K/mm3 (1.2-5.4) 12/18/20 05:40 [place] # (Auto) 1.4 K/mm3 (0.0-0.8) H 12/18/20 05:40 Eos # (Auto) 0.0 K/mm3 (0.0-0.4) 12/18/20 05:40 Baso # (Auto) 0.0 K/mm3 (0.0-0.1) 12/18/20 05:40 Add Manual Diff Complete 12/16/20 16:06 Total Counted 100 12/16/20 16:06 Seg Neutrophils % 86.5 % (40.0-70.0) H 12/18/20 05:40 Seg Neuts % (Manual) 86.0 % (40.0-70.0) H 12/16/20 16:06 Band Neutrophils % 9.0 % 12/16/20 16:06 Lymphocytes % (Manual) 1.0 % (13.4-35.0) L 12/16/20 16:06 Monocytes % (Manual) 4.0 % (0.0-7.3) 12/16/20 16:06 Nucleated RBC % 1.0 % (0.0-0.9) H 12/16/20 16:06 Seg Neutrophils # 16.7 K/mm3 (1.8-7.7) H 12/18/20 05:40 Seg Neutrophils # Man 25.1 K/mm3 (1.8-7.7) H 12/16/20 16:06 Band Neutrophils # 2.6 K/mm3 12/16/20 16:06 Lymphocytes # (Manual) 0.3 K/mm3 (1.2-5.4) L 12/16/20 16:06 Abs React Lymphs (Man) 0.0 K/mm3 12/16/20 16:06 Monocytes # (Manual) 1.2 K/mm3 (0.0-0.8) H 12/16/20 16:06 Eosinophils # (Manual) 0.0 K/mm3 (0.0-0.4) 12/16/20 16:06 Basophils # (Manual) 0.0 K/mm3 (0.0-0.1) 12/16/20 16:06 Metamyelocytes # 0.0 K/mm3 12/16/20 16:06 Myelocytes # 0.0 K/mm3 12/16/20 16:06 Promyelocytes # 0.0 K/mm3 12/16/20 16:06 Blast Cells # 0.0 K/mm3 12/16/20 16:06 WBC Morphology Not Reportable 12/16/20 16:06 Hypersegmented Neuts Not Reportable 12/16/20 16:06 Hyposegmented Neuts Not Reportable 12/16/20 16:06 Hypogranular Neuts Not Reportable 12/16/20 16:06 Smudge Cells Not Reportable 12/16/20 16:06 Toxic Granulation Not Reportable 12/16/20 16:06 Toxic Vacuolation Not Reportable 12/16/20 16:06 Dohle Bodies Not Reportable 12/16/20 16:06 Pelger-Huet Anomaly Not Reportable 12/16/20 16:06 Atul Rods Not Reportable 12/16/20 16:06 Platelet Estimate Consistent w auto 12/16/20 16:06 Clumped Platelets Not Reportable 12/16/20 16:06 Plt Clumps, EDTA Not Reportable 12/16/20 16:06 Large Platelets Rare 12/16/20 16:06 Giant Platelets Not Reportable 12/16/20 16:06 Platelet Satelliting Not Reportable 12/16/20 16:06 Plt Morphology Comment Not Reportable 12/16/20 16:06 RBC Morphology Not Reportable 12/16/20 16:06 Dimorphic RBCs Not Reportable 12/16/20 16:06 Polychromasia Not Reportable 12/16/20 16:06 Hypochromasia Not Reportable 12/16/20 16:06 Poikilocytosis Not Reportable 12/16/20 16:06 Anisocytosis Rare 12/16/20 16:06 Microcytosis Not Reportable 12/16/20 16:06 Macrocytosis Not Reportable 12/16/20 16:06 Spherocytes Not Reportable 12/16/20 16:06 Pappenheimer Bodies Not Reportable 12/16/20 16:06 Sickle Cells Not Reportable 12/16/20 16:06 Target Cells Not Reportable 12/16/20 16:06 Tear Drop Cells Rare 12/16/20 16:06 Ovalocytes Rare 12/16/20 16:06 Helmet Cells Not Reportable 12/16/20 16:06 Finch-[place] Bodies Not Reportable 12/16/20 16:06 [place] Rings Not Reportable 12/16/20 16:06 Norman Cells Not Reportable 12/16/20 16:06 Bite Cells Not Reportable 12/16/20 16:06 Crenated Cell Not Reportable 12/16/20 16:06 Elliptocytes Not Reportable 12/16/20 16:06 Acanthocytes (Spur) Not Reportable 12/16/20 16:06 Rouleaux Not Reportable 12/16/20 16:06 Hemoglobin C Crystals Not Reportable 12/16/20 16:06 Schistocytes Not Reportable 12/16/20 16:06 Malaria parasites Not Reportable 12/16/20 16:06 August Bodies Not Reportable 12/16/20 16:06 Hem Pathologist Commnt No 12/16/20 16:06 PT 20.3 Sec. (12.2-14.9) H 12/16/20 04:15 INR 1.75 (0.87-1.13) H 12/16/20 04:15 APTT 30.0 Sec. (24.2-36.6) 12/14/20 23:01 Sodium 144 mmol/L (137-145) D 12/18/20 05:40 Potassium 4.8 mmol/L (3.6-5.0) 12/18/20 05:40 Chloride 106.0 mmol/L (98-107) 12/18/20 05:40 Carbon Dioxide 20 mmol/L (22-30) L 12/18/20 05:40 Anion Gap 23 mmol/L 12/18/20 05:40 BUN 61 mg/dL (7-17) H 12/18/20 05:40 Creatinine 7.3 mg/dL (0.6-1.2) H 12/18/20 05:40 Estimated GFR 7 ml/min 12/18/20 05:40 BUN/Creatinine Ratio 8 % 12/18/20 05:40 Glucose 262 mg/dL (65-100) H 12/18/20 05:40 POC Glucose 234 mg/dL (70-105) H 12/18/20 07:34 Lactic Acid 1.50 mmol/L (0.7-2.0) 12/17/20 11:40 Calcium 8.5 mg/dL (8.4-10.2) 12/18/20 05:40 Phosphorus 7.30 mg/dL (2.5-4.5) H 12/15/20 13:32 Total Bilirubin 1.10 mg/dL (0.1-1.2) 12/14/20 23:01 Direct Bilirubin 0.3 mg/dL (0-0.2) H 12/14/20 23:01 Indirect Bilirubin 0.8 mg/dL 12/14/20 23:01 AST 19 units/L (5-40) 12/14/20 23:01 ALT 8 units/L (7-56) 12/14/20 23:01 Alkaline Phosphatase 121 units/L (35-129) 12/14/20 23:01 Total Creatine Kinase 405 units/L (30-135) H 12/15/20 13:32 Troponin T 0.112 ng/mL (0.00-0.029) H* 12/14/20 23:01 Total Protein 5.2 g/dL (6.3-8.2) L 12/14/20 23:01 Albumin 3.3 g/dL (3.9-5) L 12/14/20 23:01 Albumin/Globulin Ratio 1.7 % 12/14/20 23:01 Triglycerides 153 mg/dL (2-149) H 12/14/20 23:01 Cholesterol 198 mg/dL (50-199) 12/14/20 23:01 LDL Cholesterol Direct 128 mg/dL (50-130) 12/14/20 23:01 HDL Cholesterol 49 mg/dL (40-59) 12/14/20 23:01 Cholesterol/HDL Ratio 4.04 % 12/14/20 23:01 PTH Intact 76.08 pg/mL (15-65) H 12/15/20 13:32 Urine Color Yellow (Yellow) 12/15/20 01:10 Urine Turbidity Slightly-cloudy (Clear) 12/15/20 01:10 Urine pH 5.0 (5.0-7.0) 12/15/20 01:10 Ur Specific [place] 1.010 (1.003-1.030) 12/15/20 01:10 Urine Protein <15 mg/dl mg/dL (Negative) 12/15/20 01:10 Urine Glucose (UA) Neg mg/dL (Negative) 12/15/20 01:10 Urine Ketones Neg mg/dL (Negative) 12/15/20 01:10 Urine Blood Neg (Negative) 12/15/20 01:10 Urine Nitrite Neg (Negative) 12/15/20 01:10 Urine Bilirubin Neg (Negative) 12/15/20 01:10 Urine Urobilinogen 2.0 mg/dL (<2.0) 12/15/20 01:10 Ur Leukocyte Esterase Neg (Negative) 12/15/20 01:10 Urine WBC (Auto) 3.0 /HPF (0.0-6.0) 12/15/20 01:10 Urine RBC (Auto) 2.0 /HPF (0.0-6.0) 12/15/20 01:10 U Epithel Cells (Auto) < 1.0 /HPF (0-13.0) 12/15/20 01:10 Urine Yeast (Budding) 2+ /HPF 12/15/20 01:10 Coronavirus (PCR) Negative (Negative) 12/16/20 Unknown Microbiology: Microbiology 12/14/20 22:33 Peripheral/Venous Blood Culture - Preliminary NO GROWTH AFTER 72 HOURS 12/14/20 23:01 Peripheral/Venous Blood Culture - Preliminary NO GROWTH AFTER 72 HOURS Gordon/IV: Voiding Method Indwelling Catheter Active Medications - Current Medications Current Medications: Generic Name Dose Route Start Last Admin Trade Name Freq PRN Reason Stop Dose Admin Acetaminophen 650 mg 12/15/20 02:11 Acetaminophen 325 Mg Tab PO Q4H PRN Pain MILD(1-3)/Fever >100.5/OLIVER Aspirin 300 mg 12/16/20 10:00 12/18/20 09:03 Aspirin 300 Mg Rect Supp TN Not Given QDAY MIKE Atorvastatin Calcium 40 mg 12/16/20 22:00 12/17/20 21:04 Atorvastatin 40 Mg Tab PO Not Given QHS MIKE Dextrose 50 ml 12/15/20 02:11 Dextrose 50% In Water (25gm) 50 Ml Syringe IV Q30MIN PRN Hypoglycemia Protocol Heparin Sodium (Porcine) 5,000 unit 12/15/20 06:00 12/18/20 05:18 Heparin 5,000 Unit/1 Ml Vial SUB-Q 5,000 unit Q8HR MIKE Administration Hydrophilic Ointment 1 applic 12/18/20 08:00 Lip Therapy Vaseline TP DIRECT PRN Dry Lips Cefepime HCl 1 gm in 100 mls @ 200 mls/hr 12/16/20 10:00 12/18/20 09:02 Cefepime/Ns 1 Gm/100 Ml IV 200 mls/hr Q24HR MIKE Administration Protocol Dextrose/Sodium Chloride 1,000 mls @ 75 mls/hr 12/16/20 18:00 12/17/20 07:10 D5ns IV 0 mls/hr DIRECT MIKE Infusion Insulin Human Regular 0 units 12/15/20 07:30 12/18/20 09:01 Insulin Regular, Human 100 Units/1 Ml SUB-Q 3 units ACHS MIKE Administration Protocol Magnesium Hydroxide 30 ml 12/15/20 02:11 Magnesium Hydroxide (Mom) Oral Liqd Udc PO Q4H PRN Constipation Ondansetron HCl 4 mg 12/15/20 02:11 Ondansetron 4 Mg/2 Ml Inj IV Q8H PRN Nausea And Vomiting Sodium Chloride 10 ml 12/15/20 10:00 12/18/20 09:02 Sodium Chloride 0.9% 10 Ml Flush Syringe IV 10 ml BID MIKE Administration Sodium Chloride 10 ml 12/15/20 02:11 Sodium Chloride 0.9% 10 Ml Flush Syringe IV PRN PRN LINE FLUSH Nutrition/Malnutrition Assess - Dietary Evaluation Nutrition/Malnutrition Findings: Nutrition Notes Start: 12/15/20 14:43 Freq: Status: Active Protocol: Document 12/15/20 14:43 AL (Rec: 12/15/20 14:54 AL [id number]) Co-Sign 12/15/20 14:43 LP Nutrition Notes Need for Assessment generated from: MD Order,Education Initial or Follow up Assessment Current Diagnosis Acute Kidney Injury,COPD, Diabetes,Hypertension,Stroke Current Diet Cardiac/Consistent Carb Labs/Tests Na 136 BUN 46 Cr 6.9 K 5.2 Pertinent Medications Reviewed Height 5 ft 6 in Weight 125.5 kg [place] Body Weight (kg) 59.09 BMI 44.6 Weight Status Morbidly Obese Subjective/Other Information MD consult for diet education. Pt unable to speak due to AMS and old age. Per RN, pt has poor oral intake <25% of current diet and suggests ordering ONS. Pt on hospice Percent of energy/protein needs met: 28%/29% Burn Absent Trauma Absent Current % PO Poor (25-49%) Minimum of two criteria No Energy Intake (non-severe) <75% Estimated Energy Requirement >7 days #1 Nutrition Diagnosis Inadequate oral intake Etiology AMS, advanced age As Evidenced by Signs and Symptoms pt meets 28%/29% of estimated energy/protein needs PO Is patient on ventilator? No Is Patient Ambulatory and/or Out of Bed No REE-([facility]-confined to bed) 2143.512 Kcal/Kg value to use for calculation 14 Approximate Energy Requirements Using 1757 kcal/Kg Calculation Used for Recommendations Kcal/kg Additional Notes Protein 73.6-110 g (.8-1.2 AdBW 92 kg) Fluid: 1 ml/kcal Nutrition Intervention Change Diet Order: Current diet as ordered Add Supplement/Snack (indicate name/kcal Nepro TID /protein ) Provides kCal: 1,275 Provides Protein (gm) 57 Goal #1 Meet at least 75% of estimated energy and protein needs PO Goal #2 ONS tolerance Anticipated Discharge Needs: Cardiac/Consistent CHO diet Follow-Up By: 12/19/20 Additional Comments FU for intakes and ONS tolerance, diet education needs.
[2020-12-18] MEDS ORDERED: FUROSEMIDE 40 MG/4 ML INJ IV ONE (15:35)
--- NOTE | 2020-12-18 15:46 | XRay Report ---
LEFT FOREARM 2 VIEWS LEFT HAND 2 VIEWS INDICATION / CLINICAL INFORMATION: Pain in left hand and forearm. COMPARISON: None available. FINDINGS: This exam is limited by the patient's inability to maintain appropriate position for radiographs. BONES and JOINT(S): No acute fracture or subluxation. Moderate osteoarthritis is noted at the first c arpometacarpal joint. No other significant degenerative changes. SOFT TISSUES: No significant abnormality. ADDITIONAL FINDINGS: None. IMPRESSION: 1. No acute findings. Signer Name: Chevy Pham MD Signed: 12/18/2020 3:41 PM Workstation Name: [id number]
[2020-12-19] MEDS: HEPARIN 5,000 UNIT/1 ML VIAL SUB-Q SCH ×3 (05:00→22:15)
[2020-12-19] MEDS: MORPHINE 2 MG/1 ML INJ IV PRN (08:35)
[2020-12-19] MEDS: INSULIN REGULAR, HUMAN 100 UNITS/1 ML SUB-Q SCH ×4 (08:36→22:16)
--- NOTE | 2020-12-19 09:59 | Event Note ---
Date: 12/19/20 No further cardiac interventions, we will manage conservatively from a cardiac standpoint and follow intermittently.
[2020-12-19] MEDS: CEFEPIME/NS 1 GM/100 ML 1 GM/100 ML BAG IV SCH (10:24)
[2020-12-19] MEDS: ASPIRIN 300 MG RECT SUPP PR SCH (10:24)
--- NOTE | 2020-12-19 10:36 | Vascular Lab Report ---
Ultrasound left upper extremity veins INDICATION: Left upper extremity pain and swelling IMPRESSION: There is no evidence of a DVT within the deep veins of the left upper extremity. There is a thrombus within a superficial vein of the left upper extremity, specifically the cephalic vein at the mid biceps which extends to the level of the antecubital fossa. Signer Name: Clive Villafuerte MD Signed: 12/19/2020 10:31 AM Workstation Name: [id number]
--- NOTE | 2020-12-19 10:50 | Discharge Summary ---
Providers - Providers Date of Admission: 12/15/20 01:55 Attending physician: MARY CRUZ MD 12/15/20 02:11 Consult to Dietitian/Nutrition [CONS] Routine Physician Instructions: Reason For Exam: Reason for Consult: Diet education Consult to Physician [CONS] Routine Comment: Consulting Provider: DELVIN LOPEZ Physician Instructions: Reason For Exam: ARF 12/15/20 03:36 Physical Therapy Evaluation and Treat [CONS] Routine Comment: Reason For Exam: History of fall, failure to thrive 12/15/20 08:52 Consult to Physician [CONS] Routine Comment: Consulting Provider: GAY TAN Physician Instructions: Reason For Exam: presumed type 2 mi 12/15/20 11:07 Consult to Case Management [CONS] Routine Services Needed at Discharge: Machinist Class B Notified:: No Additional Physician Instructions: placement. Please cordinate with the Hospice team. I believe the Hospice is [facility] 12/15/20 11:19 Consult to Wound/ET Nurse [CONS] Routine Reason For Exam: sacral 12/16/20 08:30 Speech Therapy Evaluation and Treat [CONS] Routine Reason For Exam: failure to thrive 12/17/20 11:08 Consult to Physician [CONS] Routine Comment: Consulting Provider: REX GASTON Physician Instructions: Reason For Exam: LEUKOCYTOSIS 12/18/20 12:39 Speech Therapy Evaluation and Treat [CONS] Routine Reason For Exam: swallow evaluation 12/19/20 08:12 Speech Therapy Evaluation and Treat [CONS] Stat Reason For Exam: if pt could eat Primary care physician: BUTTONHOLE MAKER Hospitalization Reason for admission: Altered mental status Condition: Stable Hospital course: 70-year-old -Turkmen female who is also a DNR with known history of COPD, CVA, hypertension and diabetes mellitus brought to the emergency room via EMS from home because of decreased oral intake and generalized weakness. Patient was said to have had a fall about 3 days ago and since then patient cond ition has been declining. She has not been able to ambulate very well and has been having decreased oral intake. There has been no fever or chills, no nausea vomiting, no abdominal pain, no diarrhea, no hematuria or dysuria. There has been no history of head injury or seizure disorder. No known history of sick contacts and no recent travel. No contacts with anyone with COVID-19. Patient had some morphine prior to arrival in the emergency room and since arrival has been quite drowsy and unable to have any verbal communication during this exam. Work-up in the emergency room, significant findings is that of elevated BUN and creatinine. Other work-up has been within normal limits. Patient is being admitted for dehydration and generalized weakness. Acute metabolic encephalopathy etiology still questionable Leukocytosis unknown source Acute kidney injury likely secondary to ATN SIRS WITHOUT SEPSIS Dehydration Diabetes mellitus Hyperkalemia Type II CO Morbidly obese BMI 45 COPD without acute exacerbation Prior history of CVA Hypertension Recurrent falls Plan 12/16: Patient of admission was ruled out for stroke with a CT which was negative considering that this has been 3 days of worsening mental status was anticipated that if there is a stroke it would show on the CT regardless the patient also had type II CO for which cardiology was consulted and recommended conservative management which will continue in respect to cardiology. Also discussed with the daughter who does not want any heroic measures and would like the patient placed to a senior care with hospice. Patient continues to have decreased oral intake family did not want any life prolonging measures including tube feeds. Today patient is noted to have leukocytosis unknown etiology we will repeat study. We will also obtain an MRI asked family interested to know if there was a definite new stroke. While this is going on we will continue work-up we will start the patient on aspirin and statin. 12/17: Will Obtain ID consult on WBC that is continued rising, will also check Lactic acid, still awaiting Hospice placement but want to rule out any other pathology that does not require invasive procedure. Will place NGT to give Kayaxlate due to worsening Hyperkalemia 12/18: White count and potassium are improving. Continue to monitor. Awaiting placement for inpatient hospice 12/19: Patient clinically improved this morning asking for something to drink her clinical improvement started yesterday mental status improved. Anticipate to be able to be discharged today to inpatient hospice. While no specific source of infection was found it appears that the patient had an underlying infectious process as improvement started with the initiation of antibiotics. Her white count is also trending downwards. Unfortunately renal function remains unimproved. Family at this point do not want dialysis. Disposition: DC-50 TO HOSPICE (HOME) Time spent for discharge: 35 MINS Core Measure Documentation - Palliative Care Palliative Care/ Comfort Measures: Hospice Care - Core Measures Any of the following diagnoses?: none Exam - Physical Exam Narrative exam: VITAL SIGNS: Reviewed. GENERAL: The patient appears normally developed, morbidly obese, otherwise confused vital signs as documented. HEAD: No signs of head trauma. EYES: Pupils are equal. Extraocular motions intact. EARS: Hearing grossly intact. MOUTH: Oropharynx is normal. NECK: No adenopathy, no JVD. CHEST: Chest with clear breath sounds bilaterally. No wheezes, rales, or rhonchi. CARDIAC: Regular rate and rhythm. S1 and S2, without murmurs, gallops, or rubs. VASCULAR: No Edema. Peripheral pulses normal and equal in all extremities. ABDOMEN: Soft, non tender and non distended. No rebound or guarding, and no masses palpated. Bowel Sounds normal. MUSCULOSKELETAL: Good range of motion of all major joints. Extremities without clubbing, cyanosis or edema. NEUROLOGIC EXAM: Awake with no focal sensory or strength deficits. PSYCHIATRIC: Mood normal. SKIN: detail exam as documented in skin assessment - Constitutional Vitals: Temp Pulse Resp BP Pulse Ox 98.4 F 94 H 24 128/75 93 12/19/20 07:59 12/19/20 07:59 12/19/20 07:59 12/19/20 07:59 12/19/20 07:59 Plan Activity: advance as tolerated, fall precautions Diet: renal Special Instructions: record daily weights, record daily BP diary Additional Instructions: management per Hospice Team Follow up with: PRIMARY CARE, [Primary Care Provider] - 3-5 Days Prescriptions: cephALEXin [Keflex] 250 mg PO BID #10 capsule
--- NOTE | 2020-12-19 10:50 | Progress Note ---
Assessment and Plan 1. Acute kidney injury: Vasomotor HILDA superimposed on CKD in the setting of volume depletion and hypotension. Most likely ATN. Continue IV fluids. Monitor renal function. Renal prognosis is guarded. Avoid nephrotoxic agents. Meds dosage based on GFR. 2. FEN: Hyperkalemia, improved. Monitor volume status and lytes. 3. Elevated Troponin: Seen by Cards. 4. Toxic metabolic encephalopathy: Baseline MS is unknown. Monitor. 6. Anemia, POA: Transfuse prn. Monitor. 7. Hypertension: Monitor. Await transfer to inpatient hospice. Subjective: Patient was seen and examined at the bedside. RN at the bedside. Examination: General appearance: well-developed, appears stated age, not in distress, on mittens HEENT: ATNC Neck: Trachea midline Respiratory: ctab Cardiology: regular, S1S2, no murmur Abdomen: soft, normoactive bowel sounds, not tender, not distended Integumentary: warm and dry, no obvious rash Neurologic: lethargic, non-verbal, not following any command Ext: no edema : Gordon catheter Subjective Date of service: 12/19/20 Objective - Vital Signs Vital signs: Vital Signs - 12hr 12/19/20 12/19/20 12/19/20 00:16 05:50 07:59 Temperature 97.6 F 97.9 F 98.4 F Pulse Rate 91 H 89 94 H Respiratory 18 16 24 Rate Blood Pressure 106/51 127/60 128/75 O2 Sat by Pulse 99 99 93 Oximetry - Lab 12/18/20 05:40 12/18/20 05:40 Most recent lab results Calcium 8.5 mg/dL (8.4-10.2) 12/18/20 05:40 Phosphorus 7.30 mg/dL (2.5-4.5) H 12/15/20 13:32 Medications & Allergies - Medications Allergies/Adverse Reactions: Allergies duloxetine HCl [From Cymbalta] Allergy (Verified 03/07/17 14:13) LOWERS B/P pregabalin [From Lyrica] Allergy (Verified 03/07/17 14:13) LOWERS B/P quinapril HCl [From Accupril] Allergy (Verified 03/07/17 14:13) LOWERS B/P Home Medications: Home Medications Medication Instructions Recorded Confirmed Last Taken Type Albuterol Mdi (or & Nicu Only) 2 puff IH QID PRN 03/07/17 03/08/17 03/07/17 History [ProAir HFA Inhaler] Aspirin [Adult Low Dose Aspirin EC] 81 mg PO QDAY 03/07/17 03/08/17 03/03/17 History Cholecalciferol Vit D3 [Vitamin D3 1,000 unit PO QDAY 03/07/17 03/08/17 03/07/17 History 1,000 UNIT TAB] Cyanocobalamin (Vitamin B-12) 1,000 mcg PO QDAY 03/07/17 03/08/17 03/07/17 History [B-12] Gabapentin 300 mg PO Q8HR 03/07/17 03/08/17 03/07/17 History Losartan [Cozaar] 100 mg PO QDAY 03/07/17 03/08/17 03/08/17 History Nystatin Cream [Mycostatin Cream] 1 applic TP BID 03/07/17 03/08/17 03/07/17 History Pantoprazole [Protonix TAB] 40 mg PO QDAY 03/07/17 03/08/17 03/07/17 History Pravastatin Sodium [Pravastatin] 20 mg PO QDAY 03/07/17 03/08/17 03/07/17 History Sulfamethoxazole/Trimethoprim 1 each PO BID 03/07/17 03/08/17 03/07/17 History [Bactrim DS TAB] carvediloL [Coreg] 12.5 mg PO BID 03/07/17 03/08/17 03/08/17 History oxyCODONE /ACETAMINOPHEN [Percocet 1 tab PO Q4HR #40 tab 03/08/17 Unknown Rx 5/325 mg] cephALEXin [Keflex] 250 mg PO BID #10 capsule 12/19/20 Unknown Rx Active Medications: Generic Name Dose Route Start Last Admin Trade Name Freq PRN Reason Stop Dose Admin Acetaminophen 650 mg 12/15/20 02:11 Acetaminophen 325 Mg Tab PO Q4H PRN Pain MILD(1-3)/Fever >100.5/OLIVER Aspirin 300 mg 12/16/20 10:00 12/19/20 10:24 Aspirin 300 Mg Rect Supp [place] 300 mg QDAY MIKE Administration Atorvastatin Calcium 40 mg 12/16/20 22:00 12/18/20 22:11 Atorvastatin 40 Mg Tab PO Not Given QHS MIKE Dextrose 50 ml 12/15/20 02:11 Dextrose 50% In Water (25gm) 50 Ml Syringe IV Q30MIN PRN Hypoglycemia Protocol Heparin Sodium (Porcine) 5,000 unit 12/15/20 06:00 12/19/20 05:00 Heparin 5,000 Unit/1 Ml Vial SUB-Q 5,000 unit Q8HR MIKE Administration Hydrophilic Ointment 1 applic 12/18/20 08:00 12/18/20 17:03 Lip Therapy Vaseline TP 1 applic DIRECT PRN Administration Dry Lips Cefepime HCl 1 gm in 100 mls @ 200 mls/hr 12/16/20 10:00 12/19/20 10:24 Cefepime/Ns 1 Gm/100 Ml IV 200 mls/hr Q24HR MIKE Administration Protocol Insulin Human Regular 0 units 12/15/20 07:30 12/19/20 08:36 Insulin Regular, Human 100 Units/1 Ml SUB-Q Not Given ACHS [facility] Protocol Magnesium Hydroxide 30 ml 12/15/20 02:11 Magnesium Hydroxide (Mom) Oral Liqd Udc PO Q4H PRN Constipation Morphine Sulfate 2 mg 12/18/20 13:29 12/19/20 08:35 Morphine 2 Mg/1 Ml Inj IV 2 mg Q4H PRN Administration Pain, Moderate (4-6) Ondansetron HCl 4 mg 12/15/20 02:11 Ondansetron 4 Mg/2 Ml Inj IV Q8H PRN Nausea And Vomiting Sodium Chloride 10 ml 12/15/20 10:00 12/19/20 10:24 Sodium Chloride 0.9% 10 Ml Flush Syringe IV 10 ml BID MIKE Administration Sodium Chloride 10 ml 12/15/20 02:11 Sodium Chloride 0.9% 10 Ml Flush Syringe IV PRN PRN LINE FLUSH
[2020-12-20] MEDS: HEPARIN 5,000 UNIT/1 ML VIAL SUB-Q SCH ×3 (05:12→21:57)
[2020-12-20] MEDS: MORPHINE 2 MG/1 ML INJ IV PRN ×2 (05:13→22:07)
--- NOTE | 2020-12-20 09:12 | Progress Note ---
Assessment and Plan 1. Acute kidney injury: Vasomotor HILDA superimposed on CKD in the setting of volume depletion and hypotension. Most likely ATN. Continue IV fluids. Monitor renal function. Renal prognosis is guarded. Avoid nephrotoxic agents. Meds dosage based on GFR. 2. FEN: Hyperkalemia, improved. Monitor volume status and lytes. 3. Elevated Troponin: Seen by Cards. 4. Toxic metabolic encephalopathy: Baseline MS is unknown. Monitor. 6. Anemia, POA: Transfuse prn. Monitor. 7. Hypertension: Monitor. Await transfer to inpatient hospice. Subjective: Patient was seen and examined at the bedside. Examination: General appearance: well-developed, appears stated age, not in distress HEENT: ATNC Neck: Trachea midline Respiratory: ctab Cardiology: regular, S1S2, no murmur Abdomen: soft, normoactive bowel sounds, not tender, not distended Integumentary: warm and dry, no obvious rash Neurologic: alert, conversing, able to move extremities, confused Ext: LE edema : Gordon catheter Subjective Date of service: 12/20/20 Objective - Vital Signs Vital signs: Vital Signs - 12hr 12/20/20 12/20/20 12/20/20 04:55 05:13 05:43 Temperature 98.9 F Pulse Rate 89 Respiratory 20 21 20 Rate Blood Pressure 134/65 O2 Sat by Pulse 96 Oximetry - Lab 12/18/20 05:40 12/18/20 05:40 Most recent lab results Calcium 8.5 mg/dL (8.4-10.2) 12/18/20 05:40 Phosphorus 7.30 mg/dL (2.5-4.5) H 12/15/20 13:32 Medications & Allergies - Medications Allergies/Adverse Reactions: Allergies duloxetine HCl [From Cymbalta] Allergy (Verified 03/07/17 14:13) LOWERS B/P pregabalin [From Lyrica] Allergy (Verified 03/07/17 14:13) LOWERS B/P quinapril HCl [From Accupril] Allergy (Verified 03/07/17 14:13) LOWERS B/P Home Medications: Home Medications Medication Instructions Recorded Confirmed Last Taken Type Albuterol Mdi (or & Nicu Only) 2 puff IH QID PRN 03/07/17 12/19/20 03/07/17 History [ProAir HFA Inhaler] Aspirin [Adult Low Dose Aspirin EC] 81 mg PO QDAY 03/07/17 12/19/20 03/03/17 History Cholecalciferol Vit D3 [Vitamin D3 1,000 unit PO QDAY 03/07/17 12/19/20 03/07/17 History 1,000 UNIT TAB] Cyanocobalamin (Vitamin B-12) 1,000 mcg PO QDAY 03/07/17 12/19/20 03/07/17 History [B-12] Gabapentin 300 mg PO Q8HR 03/07/17 12/19/20 03/07/17 History Losartan [Cozaar] 100 mg PO QDAY 03/07/17 12/19/20 03/08/17 History Nystatin Cream [Mycostatin Cream] 1 applic TP BID 03/07/17 12/19/20 03/07/17 History Pantoprazole [Protonix TAB] 40 mg PO QDAY 03/07/17 12/19/20 03/07/17 History Pravastatin Sodium [Pravastatin] 20 mg PO QDAY 03/07/17 12/19/20 03/07/17 History Sulfamethoxazole/Trimethoprim 1 each PO BID 03/07/17 12/19/20 03/07/17 History [Bactrim DS TAB] carvediloL [Coreg] 12.5 mg PO BID 03/07/17 12/19/20 03/08/17 History oxyCODONE /ACETAMINOPHEN [Percocet 1 tab PO Q4HR #40 tab 03/08/17 12/19/20 Unknown Rx 5/325 mg] cephALEXin [Keflex] 250 mg PO BID #10 capsule 12/19/20 Unknown Rx Active Medications: Generic Name Dose Route Start Last Admin Trade Name Freq PRN Reason Stop Dose Admin Acetaminophen 650 mg 12/15/20 02:11 Acetaminophen 325 Mg Tab PO Q4H PRN Pain MILD(1-3)/Fever >100.5/OLIVER Aspirin 300 mg 12/16/20 10:00 12/19/20 10:24 Aspirin 300 Mg Rect Supp [place] 300 mg QDAY MIKE Administration Atorvastatin Calcium 40 mg 12/16/20 22:00 12/19/20 22:15 Atorvastatin 40 Mg Tab PO 40 mg QHS MIKE Administration Dextrose 50 ml 12/15/20 02:11 Dextrose 50% In Water (25gm) 50 Ml Syringe IV Q30MIN PRN Hypoglycemia Protocol Heparin Sodium (Porcine) 5,000 unit 12/15/20 06:00 12/20/20 05:12 Heparin 5,000 Unit/1 Ml Vial SUB-Q 5,000 unit Q8HR MIKE Administration Hydrophilic Ointment 1 applic 12/18/20 08:00 12/18/20 17:03 Lip Therapy Vaseline TP 1 applic DIRECT PRN Administration Dry Lips Cefepime HCl 1 gm in 100 mls @ 200 mls/hr 12/16/20 10:00 12/19/20 10:24 Cefepime/Ns 1 Gm/100 Ml IV 200 mls/hr Q24HR MIKE Administration Protocol Insulin Human Regular 0 units 12/15/20 07:30 12/19/20 22:16 Insulin Regular, Human 100 Units/1 Ml SUB-Q Not Given ACHS MIKE Protocol Magnesium Hydroxide 30 ml 12/15/20 02:11 Magnesium Hydroxide (Mom) Oral Liqd Udc PO Q4H PRN Constipation Morphine Sulfate 2 mg 12/18/20 13:29 12/20/20 05:13 Morphine 2 Mg/1 Ml Inj IV 2 mg Q4H PRN Administration Pain, Moderate (4-6) Ondansetron HCl 4 mg 12/15/20 02:11 Ondansetron 4 Mg/2 Ml Inj IV Q8H PRN Nausea And Vomiting Sodium Chloride 10 ml 12/15/20 10:00 12/19/20 22:16 Sodium Chloride 0.9% 10 Ml Flush Syringe IV 10 ml BID MIKE Administration Sodium Chloride 10 ml 12/15/20 02:11 Sodium Chloride 0.9% 10 Ml Flush Syringe IV PRN PRN LINE FLUSH
[2020-12-20] MEDS: INSULIN REGULAR, HUMAN 100 UNITS/1 ML SUB-Q SCH ×4 (09:14→21:57)
[2020-12-20] MEDS: CEFEPIME/NS 1 GM/100 ML 1 GM/100 ML BAG IV SCH (09:14)
[2020-12-20] MEDS: ASPIRIN 300 MG RECT SUPP PR SCH (10:00)
--- NOTE | 2020-12-20 16:34 | Progress Note ---
Assessment and Plan Assessment and plan: 70-year-old -[place] female who is also a DNR with known history of COPD, CVA, hypertension and diabetes mellitus brought to the emergency room via EMS from home because of decreased oral intake and generalized weakness.Patient was said to have had a fall about 3 days ago and since then patient condition has been declining. She has not been able to ambulate very well and has been having decreased oral intake. There has been no fever or chills, no nausea vomiting, no abdominal pain, no diarrhea, no hematuria or dysuria. There has been no history of head injury or seizure disorder.No known history of sick contacts and no recent travel. No contacts with anyone with COVID-19. Patient had some morphine prior to arrival in the emergency room and since arrival has been quite drowsy and unable to have any verbal communication during this exam.Work-up in the emergency room, significant findings is that of elevated BUN and creatinine. Other work-up has been within normal limits. Patient is being admitted for dehydration and generalized weakness. --Acute metabolic encephalopathy; present on admission Multifactorial, patient is minimally communicative Responds to simple questions --Leukocytosis; present on admission Continue empiric antibiotics, follow cultures --Acute kidney injury likely secondary to ATN; Gentle hydration closely monitor renal function Avoid nephrotoxins, nephrology following --SIRS WITHOUT SEPSIS; Continue empiric antibiotics, cultures negative to date --Dehydration/moderate malnutrition Hypoalbuminemia, albumin 3.3 Nutrition supplements, nutrition consult --Diabetes mellitus; Accu-Chek sliding scale coverage ADA diet, insulin as needed Check A1c --Hyperkalemia; Present on admission Now corrected --Morbid obesity; BMI 45.4 Patient needs weight reduction when medically stable Dietary modification, exercise as tolerated and weight reduction When stable, may need outpatient bariatric surgical evaluation For different options of weight reduction program When patient is medically stable --COPD without acute exacerbation; Oxygen, nebulizers, IV steroids, supportive care' --Prior history of CVA; with residual weakness PT OT supportive care --History of hypertension; Well controlled, as needed hydralazine --History of recurrent falls; Multifactorial, fall precautions, PT OT Placement --DNR status; --DC planning; family wants hospice placement Awaiting COVID-19 test prior to discharge Patient is critically ill with multiple medical problems Poor prognosis, family aware Plan of care discussed with the patient's nurse and case management History Interval history: I have seen and examined the patient this afternoon Patient's chart and medications reviewed No new complaints Vital signs reviewed Hospitalist Physical - Constitutional Vitals: Temp Pulse Resp BP Pulse Ox 98.9 F 91 H 20 149/69 100 12/20/20 04:55 12/20/20 12:33 12/20/20 10:00 12/20/20 15:30 12/20/20 12:33 General appearance: Present: no acute distress, well-nourished, obese (Morbidly obese) - EENT Eyes: Present: PERRL, EOM intact - Neck Neck: Present: supple, normal ROM - Respiratory Respiratory effort: normal Respiratory: bilateral: diminished, rhonchi, negative: rales, wheezing - Cardiovascular Rhythm: regular Heart Sounds: Present: S1 & S2 - Extremities Extremities: no ischemia, No edema - Abdominal General gastrointestinal: soft, non-tender, non-distended, normal bowel sounds - Integumentary Integumentary: Present: clear, warm - Psychiatric Psychiatric: appropriate mood/affect, cooperative - Neurologic Neurologic: moves all extremities HEART Score - HEART Score Troponin: Troponin T 0.112 ng/mL (0.00-0.029) H* 12/14/20 23:01 Results - Labs CBC & Chem 7: 12/18/20 05:40 12/18/20 05:40 Labs: Laboratory Last Values WBC 19.3 K/mm3 (4.5-11.0) H 12/18/20 05:40 RBC 2.85 M/mm3 (3.65-5.03) L 12/18/20 05:40 Hgb 8.6 gm/dl (10.1-14.3) L 12/18/20 05:40 Hct 26.1 % (30.3-42.9) L 12/18/20 05:40 MCV 91 fl (79-97) 12/18/20 05:40 MCH 30 pg (28-32) 12/18/20 05:40 MCHC 33 % (30-34) 12/18/20 05:40 RDW 15.0 % (13.2-15.2) 12/18/20 05:40 Plt Count 292 K/mm3 (140-440) 12/18/20 05:40 Lymph % (Auto) 6.0 % (13.4-35.0) L 12/18/20 05:40 [place] % (Auto) 7.2 % (0.0-7.3) 12/18/20 05:40 Eos % (Auto) 0.1 % (0.0-4.3) 12/18/20 05:40 Baso % (Auto) 0.2 % (0.0-1.8) 12/18/20 05:40 Lymph # (Auto) 1.2 K/mm3 (1.2-5.4) 12/18/20 05:40 [place] # (Auto) 1.4 K/mm3 (0.0-0.8) H 12/18/20 05:40 Eos # (Auto) 0.0 K/mm3 (0.0-0.4) 12/18/20 05:40 Baso # (Auto) 0.0 K/mm3 (0.0-0.1) 12/18/20 05:40 Add Manual Diff Complete 12/16/20 16:06 Total Counted 100 12/16/20 16:06 Seg Neutrophils % 86.5 % (40.0-70.0) H 12/18/20 05:40 Seg Neuts % (Manual) 86.0 % (40.0-70.0) H 12/16/20 16:06 Band Neutrophils % 9.0 % 12/16/20 16:06 Lymphocytes % (Manual) 1.0 % (13.4-35.0) L 12/16/20 16:06 Monocytes % (Manual) 4.0 % (0.0-7.3) 12/16/20 16:06 Nucleated RBC % 1.0 % (0.0-0.9) H 12/16/20 16:06 Seg Neutrophils # 16.7 K/mm3 (1.8-7.7) H 12/18/20 05:40 Seg Neutrophils # Man 25.1 K/mm3 (1.8-7.7) H 12/16/20 16:06 Band Neutrophils # 2.6 K/mm3 12/16/20 16:06 Lymphocytes # (Manual) 0.3 K/mm3 (1.2-5.4) L 12/16/20 16:06 Abs React Lymphs (Man) 0.0 K/mm3 12/16/20 16:06 Monocytes # (Manual) 1.2 K/mm3 (0.0-0.8) H 12/16/20 16:06 Eosinophils # (Manual) 0.0 K/mm3 (0.0-0.4) 12/16/20 16:06 Basophils # (Manual) 0.0 K/mm3 (0.0-0.1) 12/16/20 16:06 Metamyelocytes # 0.0 K/mm3 12/16/20 16:06 Myelocytes # 0.0 K/mm3 12/16/20 16:06 Promyelocytes # 0.0 K/mm3 12/16/20 16:06 Blast Cells # 0.0 K/mm3 12/16/20 16:06 WBC Morphology Not Reportable 12/16/20 16:06 Hypersegmented Neuts Not Reportable 12/16/20 16:06 Hyposegmented Neuts Not Reportable 12/16/20 16:06 Hypogranular Neuts Not Reportable 12/16/20 16:06 Smudge Cells Not Reportable 12/16/20 16:06 Toxic Granulation Not Reportable 12/16/20 16:06 Toxic Vacuolation Not Reportable 12/16/20 16:06 Dohle Bodies Not Reportable 12/16/20 16:06 Pelger-Huet Anomaly Not Reportable 12/16/20 16:06 Atul Rods Not Reportable 12/16/20 16:06 Platelet Estimate Consistent w auto 12/16/20 16:06 Clumped Platelets Not Reportable 12/16/20 16:06 Plt Clumps, EDTA Not Reportable 12/16/20 16:06 Large Platelets Rare 12/16/20 16:06 Giant Platelets Not Reportable 12/16/20 16:06 Platelet Satelliting Not Reportable 12/16/20 16:06 Plt Morphology Comment Not Reportable 12/16/20 16:06 RBC Morphology Not Reportable 12/16/20 16:06 Dimorphic RBCs Not Reportable 12/16/20 16:06 Polychromasia Not Reportable 12/16/20 16:06 Hypochromasia Not Reportable 12/16/20 16:06 Poikilocytosis Not Reportable 12/16/20 16:06 Anisocytosis Rare 12/16/20 16:06 Microcytosis Not Reportable 12/16/20 16:06 Macrocytosis Not Reportable 12/16/20 16:06 Spherocytes Not Reportable 12/16/20 16:06 Pappenheimer Bodies Not Reportable 12/16/20 16:06 Sickle Cells Not Reportable 12/16/20 16:06 Target Cells Not Reportable 12/16/20 16:06 Tear Drop Cells Rare 12/16/20 16:06 Ovalocytes Rare 12/16/20 16:06 Helmet Cells Not Reportable 12/16/20 16:06 [place] Bodies Not Reportable 12/16/20 16:06 [place] Rings Not Reportable 12/16/20 16:06 [place] Cells Not Reportable 12/16/20 16:06 Bite Cells Not Reportable 12/16/20 16:06 Crenated Cell Not Reportable 12/16/20 16:06 Elliptocytes Not Reportable 12/16/20 16:06 Acanthocytes (Spur) Not Reportable 12/16/20 16:06 Rouleaux Not Reportable 12/16/20 16:06 Hemoglobin C Crystals Not Reportable 12/16/20 16:06 Schistocytes Not Reportable 12/16/20 16:06 Malaria parasites Not Reportable 12/16/20 16:06 August Bodies Not Reportable 12/16/20 16:06 Hem Pathologist Commnt No 12/16/20 16:06 PT 20.3 Sec. (12.2-14.9) H 12/16/20 04:15 INR 1.75 (0.87-1.13) H 12/16/20 04:15 APTT 30.0 Sec. (24.2-36.6) 12/14/20 23:01 Sodium 144 mmol/L (137-145) D 12/18/20 05:40 Potassium 4.8 mmol/L (3.6-5.0) 12/18/20 05:40 Chloride 106.0 mmol/L (98-107) 12/18/20 05:40 Carbon Dioxide 20 mmol/L (22-30) L 12/18/20 05:40 Anion Gap 23 mmol/L 12/18/20 05:40 BUN 61 mg/dL (7-17) H 12/18/20 05:40 Creatinine 7.3 mg/dL (0.6-1.2) H 12/18/20 05:40 Estimated GFR 7 ml/min 12/18/20 05:40 BUN/Creatinine Ratio 8 % 12/18/20 05:40 Glucose 262 mg/dL (65-100) H 12/18/20 05:40 POC Glucose 154 mg/dL (70-105) H 12/20/20 08:38 Lactic Acid 1.50 mmol/L (0.7-2.0) 12/17/20 11:40 Calcium 8.5 mg/dL (8.4-10.2) 12/18/20 05:40 Phosphorus 7.30 mg/dL (2.5-4.5) H 12/15/20 13:32 Total Bilirubin 1.10 mg/dL (0.1-1.2) 12/14/20 23:01 Direct Bilirubin 0.3 mg/dL (0-0.2) H 12/14/20 23:01 Indirect Bilirubin 0.8 mg/dL 12/14/20 23:01 AST 19 units/L (5-40) 12/14/20 23:01 ALT 8 units/L (7-56) 12/14/20 23:01 Alkaline Phosphatase 121 units/L (35-129) 12/14/20 23:01 Total Creatine Kinase 405 units/L (30-135) H 12/15/20 13:32 Troponin T 0.112 ng/mL (0.00-0.029) H* 12/14/20 23:01 Total Protein 5.2 g/dL (6.3-8.2) L 12/14/20 23:01 Albumin 3.3 g/dL (3.9-5) L 12/14/20 23:01 Albumin/Globulin Ratio 1.7 % 12/14/20 23:01 Triglycerides 153 mg/dL (2-149) H 12/14/20 23:01 Cholesterol 198 mg/dL (50-199) 12/14/20 23:01 LDL Cholesterol Direct 128 mg/dL (50-130) 12/14/20 23:01 HDL Cholesterol 49 mg/dL (40-59) 12/14/20 23:01 Cholesterol/HDL Ratio 4.04 % 12/14/20 23:01 PTH Intact 76.08 pg/mL (15-65) H 12/15/20 13:32 Urine Color Yellow (Yellow) 12/15/20 01:10 Urine Turbidity Slightly-cloudy (Clear) 12/15/20 01:10 Urine pH 5.0 (5.0-7.0) 12/15/20 01:10 Ur Specific [place] 1.010 (1.003-1.030) 12/15/20 01:10 Urine Protein <15 mg/dl mg/dL (Negative) 12/15/20 01:10 Urine Glucose (UA) Neg mg/dL (Negative) 12/15/20 01:10 Urine Ketones Neg mg/dL (Negative) 12/15/20 01:10 Urine Blood Neg (Negative) 12/15/20 01:10 Urine Nitrite Neg (Negative) 12/15/20 01:10 Urine Bilirubin Neg (Negative) 12/15/20 01:10 Urine Urobilinogen 2.0 mg/dL (<2.0) 12/15/20 01:10 Ur Leukocyte Esterase Neg (Negative) 12/15/20 01:10 Urine WBC (Auto) 3.0 /HPF (0.0-6.0) 12/15/20 01:10 Urine RBC (Auto) 2.0 /HPF (0.0-6.0) 12/15/20 01:10 U Epithel Cells (Auto) < 1.0 /HPF (0-13.0) 12/15/20 01:10 Urine Yeast (Budding) 2+ /HPF 12/15/20 01:10 Coronavirus (PCR) Negative (Negative) 12/16/20 Unknown Microbiology: Microbiology 12/14/20 22:33 Peripheral/Venous Blood Culture - Final NO GROWTH AFTER 5 DAYS 12/14/20 23:01 Peripheral/Venous Blood Culture - Final NO GROWTH AFTER 5 DAYS Gordon/IV: Voiding Method Indwelling Catheter Active Medications - Current Medications Current Medications: Generic Name Dose Route Start Last Admin Trade Name Freq PRN Reason Stop Dose Admin Acetaminophen 650 mg 12/15/20 02:11 Acetaminophen 325 Mg Tab PO Q4H PRN Pain MILD(1-3)/Fever >100.5/OLIVER Aspirin 300 mg 12/16/20 10:00 12/19/20 10:24 Aspirin 300 Mg Rect Supp [place] 300 mg QDAY MIKE Administration Atorvastatin Calcium 40 mg 12/16/20 22:00 12/19/20 22:15 Atorvastatin 40 Mg Tab PO 40 mg QHS MIKE Administration Dextrose 50 ml 12/15/20 02:11 Dextrose 50% In Water (25gm) 50 Ml Syringe IV Q30MIN PRN Hypoglycemia Protocol Heparin Sodium (Porcine) 5,000 unit 12/15/20 06:00 12/20/20 05:12 Heparin 5,000 Unit/1 Ml Vial SUB-Q 5,000 unit Q8HR MIKE Administration Hydrophilic Ointment 1 applic 12/18/20 08:00 12/18/20 17:03 Lip Therapy Vaseline TP 1 applic DIRECT PRN Administration Dry Lips Cefepime HCl 1 gm in 100 mls @ 200 mls/hr 12/16/20 10:00 12/20/20 09:14 Cefepime/Ns 1 Gm/100 Ml IV 200 mls/hr Q24HR MIKE Administration Protocol Insulin Human Regular 0 units 12/15/20 07:30 12/20/20 09:14 Insulin Regular, Human 100 Units/1 Ml SUB-Q Not Given ACHS MIKE Protocol Magnesium Hydroxide 30 ml 12/15/20 02:11 Magnesium Hydroxide (Mom) Oral Liqd Udc PO Q4H PRN Constipation Morphine Sulfate 2 mg 12/18/20 13:29 12/20/20 05:13 Morphine 2 Mg/1 Ml Inj IV 2 mg Q4H PRN Administration Pain, Moderate (4-6) Ondansetron HCl 4 mg 12/15/20 02:11 Ondansetron 4 Mg/2 Ml Inj IV Q8H PRN Nausea And Vomiting Sodium Chloride 10 ml 12/15/20 10:00 12/20/20 09:22 Sodium Chloride 0.9% 10 Ml Flush Syringe IV 10 ml BID MIKE Administration Sodium Chloride 10 ml 12/15/20 02:11 Sodium Chloride 0.9% 10 Ml Flush Syringe IV PRN PRN LINE FLUSH Nutrition/Malnutrition Assess - Dietary Evaluation Nutrition/Malnutrition Findings: Nutrition Notes Start: 12/15/20 14:43 Freq: Status: Active Protocol: Document 12/19/20 13:55 (Rec: 12/19/20 13:58 [email or web address]) Nutrition Notes Initial or Follow up Brief Note Current Diagnosis Acute Kidney Injury,COPD, Diabetes,Hypertension,Stroke Current Diet Mechanical soft, renal Labs/Tests 12/18: BUN 61 Cr 7.3 Subjective/Other Information FU for intakes. Per RN, pt was struggling with chewing and was started on mech soft diet this AM. RN unsure of intakes. Pt did not receive ONS. Pt did not answer the phone. Pt is not appropriate for diet education. Nutrition Intervention Add Supplement/Snack (indicate name/kcal Nepro daily /protein ) Provides kCal: 425 Provides Protein (gm) 19 Follow-Up By: 12/21/20 Additional Comments FU for intakes and ONS tolerance
[2020-12-21] MEDS: HEPARIN 5,000 UNIT/1 ML VIAL SUB-Q SCH ×2 (06:00→13:58)
[2020-12-21] MEDS: INSULIN REGULAR, HUMAN 100 UNITS/1 ML SUB-Q SCH ×2 (08:11→12:02)
[2020-12-21] MEDS: ASPIRIN 300 MG RECT SUPP PR SCH (10:46)
[2020-12-21] MEDS: CEFEPIME/NS 1 GM/100 ML 1 GM/100 ML BAG IV SCH (10:52)
--- NOTE | 2020-12-21 12:03 | Progress Note ---
Assessment and Plan 1. Acute kidney injury: Vasomotor HILDA superimposed on CKD in the setting of volume depletion and hypotension. Most likely ATN. Continue IV fluids. Monitor renal function. Renal prognosis is guarded. Avoid nephrotoxic agents. Meds dosage based on GFR. 2. FEN: Hyperkalemia, improved. Monitor volume status and lytes. 3. Elevated Troponin: Seen by Cards. 4. Toxic metabolic encephalopathy: Baseline MS is unknown. Monitor. 6. Anemia, POA: Transfuse prn. Monitor. 7. Hypertension: Monitor. Await transfer to inpatient hospice. Subjective: Patient was seen and examined at the bedside. Examination: General appearance: well-developed, appears stated age, not in distress HEENT: ATNC Neck: Trachea midline Respiratory: ctab Cardiology: regular, S1S2, no murmur Abdomen: soft, normoactive bowel sounds, not tender, not distended Integumentary: warm and dry, no obvious rash Neurologic: lethargic Ext: LE edema : Gordon catheter Subjective Date of service: 12/21/20 Objective - Vital Signs Vital signs: Vital Signs - 12hr 12/21/20 04:29 Temperature 99.1 F Pulse Rate 143 H Respiratory 20 Rate Blood Pressure 107/73 O2 Sat by Pulse 97 Oximetry - Lab 12/18/20 05:40 12/18/20 05:40 Most recent lab results Calcium 8.5 mg/dL (8.4-10.2) 12/18/20 05:40 Phosphorus 7.30 mg/dL (2.5-4.5) H 12/15/20 13:32 Medications & Allergies - Medications Allergies/Adverse Reactions: Allergies duloxetine HCl [From Cymbalta] Allergy (Verified 03/07/17 14:13) LOWERS B/P pregabalin [From Lyrica] Allergy (Verified 03/07/17 14:13) LOWERS B/P quinapril HCl [From Accupril] Allergy (Verified 03/07/17 14:13) LOWERS B/P Home Medications: Home Medications Medication Instructions Recorded Confirmed Last Taken Type Albuterol Mdi (or & Nicu Only) 2 puff IH QID PRN 03/07/17 12/19/20 03/07/17 History [ProAir HFA Inhaler] Aspirin [Adult Low Dose Aspirin EC] 81 mg PO QDAY 05/12/19/20 03/03/17 History Cholecalciferol Vit D3 [Vitamin D3 1,000 unit PO QDAY 03/07/17 12/19/20 03/07/17 History 1,000 UNIT TAB] Cyanocobalamin (Vitamin B-12) 1,000 mcg PO QDAY 03/07/17 12/19/20 03/07/17 History [B-12] Gabapentin 300 mg PO Q8HR 03/07/17 12/19/20 03/07/17 History Losartan [Cozaar] 100 mg PO QDAY 03/07/17 12/19/20 03/08/17 History Nystatin Cream [Mycostatin Cream] 1 applic TP BID 03/07/17 12/19/20 03/07/17 History Pantoprazole [Protonix TAB] 40 mg PO QDAY 03/07/17 12/19/20 03/07/17 History Pravastatin Sodium [Pravastatin] 20 mg PO QDAY 03/07/17 12/19/20 03/07/17 Hist ory Sulfamethoxazole/Trimethoprim 1 each PO BID 03/07/17 12/19/20 03/07/17 History [Bactrim DS TAB] carvediloL [Coreg] 12.5 mg PO BID 03/07/17 12/19/20 03/08/17 History oxyCODONE /ACETAMINOPHEN [Percocet 1 tab PO Q4HR #40 tab 03/08/17 12/19/20 Unknown Rx 5/325 mg] cephALEXin [Keflex] 250 mg PO BID #10 capsule 12/19/20 Unknown Rx Active Medications: Generic Name Dose Route Start Last Admin Trade Name Freq PRN Reason Stop Dose Admin Acetaminophen 650 mg 12/15/20 02:11 12/20/20 17:07 Acetaminophen 325 Mg Tab PO 650 mg Q4H PRN Administration Pain MILD(1-3)/Fever >100.5/OLIVER Aspirin 300 mg 12/16/20 10:00 12/21/20 10:46 Aspirin 300 Mg Rect Supp NV Not Given QDAY MIKE Atorvastatin Calcium 40 mg 12/16/20 22:00 12/20/20 21:57 Atorvastatin 40 Mg Tab PO 40 mg QHS MIKE Administration Dextrose 50 ml 12/15/20 02:11 Dextrose 50% In Water (25gm) 50 Ml Syringe IV Q30MIN PRN Hypoglycemia Protocol Heparin Sodium (Porcine) 5,000 unit 12/15/20 06:00 12/21/20 06:00 Heparin 5,000 Unit/1 Ml Vial SUB-Q 5,000 unit Q8HR MIKE Administration Hydrophilic Ointment 1 applic 12/18/20 08:00 12/18/20 17:03 Lip Therapy Vaseline TP 1 applic DIRECT PRN Administration Dry Lips Cefepime HCl 1 gm in 100 mls @ 200 mls/hr 12/16/20 10:00 12/21/20 10:52 Cefepime/Ns 1 Gm/100 Ml IV 12/22/20 09:59 200 mls/hr Q24HR MIKE Administration Protocol Insulin Human Regular 0 units 12/15/20 07:30 12/21/20 12:02 Insulin Regular, Human 100 Units/1 Ml SUB-Q Not Given ACHS MIKE Protocol Magnesium Hydroxide 30 ml 12/15/20 02:11 Magnesium Hydroxide (Mom) Oral Liqd Udc PO Q4H PRN Constipation Morphine Sulfate 2 mg 12/18/20 13:29 12/20/20 22:07 Morphine 2 Mg/1 Ml Inj IV 2 mg Q4H PRN Administration Pain, Moderate (4-6) Ondansetron HCl 4 mg 12/15/20 02:11 Ondansetron 4 Mg/2 Ml Inj IV Q8H PRN Nausea And Vomiting Sodium Chloride 10 ml 12/15/20 10:00 12/21/20 10:46 Sodium Chloride 0.9% 10 Ml Flush Syringe IV 10 ml BID MIKE Administration Sodium Chloride 10 ml 12/15/20 02:11 Sodium Chloride 0.9% 10 Ml Flush Syringe IV PRN PRN LINE FLUSH
--- NOTE | 2020-12-21 15:36 | Discharge Summary ---
Providers - Providers Date of Admission: 12/15/20 01:55 Date of discharge: 12/21/20 Attending physician: RADHA ANDREA 12/15/20 02:11 Consult to Dietitian/Nutrition [CONS] Routine Physician Instructions: Reason For Exam: Reason for Consult: Diet education Consult to Physician [CONS] Routine Comment: Consulting Provider: DELVIN LOPEZ Physician Instructions: Reason For Exam: ARF 12/15/20 03:36 Physical Therapy Evaluation and Treat [CONS] Routine Comment: Reason For Exam: History of fall, failure to thrive 12/15/20 08:52 Consult to Physician [CONS] Routine Comment: Consulting Provider: GAY TAN Physician Instructions: Reason For Exam: presumed type 2 mi 12/15/20 11:07 Consult to Case Management [CONS] Routine Services Needed at Discharge: International Student Advisor Notified:: No Additional Physician Instructions: placement. Please cordinate with the Hospice team. I believe the Hospice [facility] 12/15/20 11:19 Consult to Wound/ET Nurse [CONS] Routine Reason For Exam: sacral 12/16/20 08:30 Speech Therapy Evaluation and Treat [CONS] Routine Reason For Exam: failure to thrive 12/17/20 11:08 Consult to Physician [CONS] Routine Comment: Consulting Provider: REX GASTON Physician Instructions: Reason For Exam: LEUKOCYTOSIS 12/18/20 12:39 Speech Therapy Evaluation and Treat [CONS] Routine Reason For Exam: swallow evaluation 12/19/20 08:12 Speech Therapy Evaluation and Treat [CONS] Stat Reason For Exam: if pt could eat Primary care physician: CABLE INSTALLER REPAIRER Hospitalization Reason for admission: Altered level of consciousness/metabolic encephalopathy Condition: Poor Pertinent studies: CT head X-ray hip and pelvis Multiple chest x-rays Multiple abdominal x-rays Carotid Doppler Lower extremity venous Doppler X-ray left forearm X-ray left hand Hospital course: Please refer to discharge summary dictated in detail by Dr. Granados on 12/19/2020 for all the details of hospital course Disposition: [id number] ([facility]) Time spent for discharge: 35 min Core Measure Documentation - Palliative Care Palliative Care/ Comfort Measures: Hospice Care - Core Measures Any of the following diagnoses?: none Exam - Constitutional Vitals: Temp Pulse Resp BP Pulse Ox 98.3 F 86 18 97/52 98 12/21/20 11:26 12/21/20 11:26 12/21/20 11:26 12/21/20 11:26 12/21/20 11:26 General appearance: Present: mild distress, well-nourished, obese (Morbidly obese) - EENT Eyes: Present: PERRL, EOM intact - Neck Neck: Present: supple, normal ROM - Respiratory Respiratory effort: normal Respiratory: bilateral: diminished, negative: rales, rhonchi, wheezing - Cardiovascular Rhythm: regular Heart Sounds: Present: S1 & S2 - Extremities Extremities: no ischemia, No edema - Abdominal General gastrointestinal: Present: soft, non-tender, non-distended, normal bowel sounds - Integumentary Integumentary: Present: clear, warm - Musculoskeletal Musculoskeletal: generalized weakness - Psychiatric Psychiatric: cooperative, other (Confused at times) - Neurologic Neurologic: moves all extremities Plan Activity: advance as tolerated, fall precautions Diet: other (Mechanical soft diet) Additional Instructions: Patient is being transferred to hospice house. Further management per hospice clinical specialist medical device/hospice team Follow up with: PRIMARY CARE, [Primary Care Provider] - 3-5 Days Prescriptions: cephALEXin [Keflex] 250 mg PO BID #10 capsule
[2020-12-21 16:53] VITALS: BP 100/39
== END 2020-12-21 16:54 | disposition hospice, inpatient (51) | DRG 91 ==
LOC: ED 22:10 → 3A 12-15 01:55
PROVIDERS: ADMIT Internal Medicine Geriatric Medicine; ATTEND Internal Medicine
DX: G92 Toxic encephalopathy (principal); N17.0 Acute kidney failure with tubular necrosis; I21.A1 Myocardial infarction type 2; J44.1 Chronic obstructive pulmonary disease with (acute) exacerbation; Z68.42 Body mass index [BMI] 45.0-49.9, adult; R65.10 Systemic inflammatory response syndrome (SIRS) of non-infectious origin without acute organ dysfunction; E44.0 Moderate protein-calorie malnutrition; E86.0 Dehydration; E66.01 Morbid (severe) obesity due to excess calories; Z51.5 Encounter for palliative care; Z66 Do not resuscitate; M19.90 Unspecified osteoarthritis, unspecified site; K21.9 Gastro-esophageal reflux disease without esophagitis; G43.909 Migraine, unspecified, not intractable, without status migrainosus; E11.22 Type 2 diabetes mellitus with diabetic chronic kidney disease; I12.9 Hypertensive chronic kidney disease with stage 1 through stage 4 chronic kidney disease, or unspecified chronic kidney disease; N18.9 Chronic kidney disease, unspecified; D64.9 Anemia, unspecified; R29.6 Repeated falls; E87.6 Hypokalemia; E87.5 Hyperkalemia; Z20.822 Contact with and (suspected) exposure to COVID-19; Z79.4 Long term (current) use of insulin; Z79.899 Other long term (current) drug therapy; Z88.8 Allergy status to other drugs, medicaments and biological substances; Z71.3 Dietary counseling and surveillance; Z90.49 Acquired absence of other specified parts of digestive tract; Z87.891 Personal history of nicotine dependence; Z86.73 Personal history of transient ischemic attack (TIA), and cerebral infarction without residual deficits
CPT/HCPCS: 36415; 70450; 71045; 73521; 74018; 80048; 80061; 80076; 81001; 82140; 82550; 82962; 83970; 84100; 84484; 85007; 85025; 85610; 85730; 87040; 93005; 93880; 96360; G0378; A9270-GY; J0692; J1644; J1815; J1940; J2270; J3486; J7030; J7042; U0003